=== PATIENT | male | born 1930 | race Two or more races ===

== ENCOUNTER 2018-06-17 14:16 | Inpatient (IN) | payer MEDICARE, MEDICAID ==
[~2018-06-17] VITALS: Ht 172.7 cm; Wt 76.5 kg
[2018-06-17 14:18] VITALS: BP 126/81
[2018-06-17] MEDS ORDERED: Sodium Chloride 500ML 500 ML IV ONE ×2 (14:33→22:15)
[2018-06-17] MEDS ORDERED: Albuterol ud Inhalation HHN ONE (14:45)
[2018-06-17] MEDS ORDERED: Solu-MEDROL 125mg Inj IVP ONE (14:45)
[2018-06-17] MEDS ORDERED: Ipratropium 0.02% Inh Soln 2.5ml UD HHN ONE (14:45)
[2018-06-17] MEDS ORDERED: Levalbuterol Inh UD 1.25mg/0.5ml HHN ONE (14:45)
[2018-06-17] MEDS ORDERED: FERROUS SULFAT325 MG ORAL (15:12)
[2018-06-17] MEDS ORDERED: METOPROLOL TART50 MG ORAL (15:12)
[2018-06-17] MEDS ORDERED: FUROSEMIDE40 MG ORAL (15:12)
[2018-06-17] MEDS ORDERED: POTASSIUM CHLO20 ME1 ORAL (15:12)
[2018-06-17] MEDS ORDERED: LOSARTAN POTASS25 MG ORAL ×2 (15:12→19:10)
[2018-06-17] MEDS ORDERED: MONTELUKAST SOD10 MG ORAL (15:12)
[2018-06-17] MEDS ORDERED: SPIRONOLACTONE100 MG ORAL (15:12)
[2018-06-17] MEDS ORDERED: XARELTO10 MG ORAL (15:12)
[2018-06-17] MEDS ORDERED: ATORVASTATIN CA20 MG ORAL (15:12)
[2018-06-17] MEDS ORDERED: LORazepam Inj 2mg/ml 1ml ONE (15:15)
[2018-06-17] MEDS ORDERED: Metoprolol 5mg/5ml Inj IVP ONE (15:15)
[2018-06-17] MEDS ORDERED: LORazepam Inj 2mg/ml 1ml IV ONE (15:15)
[2018-06-17] MEDS ORDERED: Lidocaine 1% Plain 30 ml INJ ONE (15:30)
[2018-06-17] MEDS ORDERED: Heparin 2000 units/Ns 1000ml INJ ONE (15:30)
[2018-06-17] MEDS ORDERED: LORazepam Inj 2mg/ml 1ml IM ONE ×3 (16:00→17:00)
[2018-06-17] MEDS ORDERED: Haloperidol 5mg/ml Inj IM ONE ×2 (16:15→17:00)
--- NOTE | 2018-06-17 16:23 | Emergency Room Report ---
History of Present Illness General Chief Complaint: Upper Respiratory Illness Source: Medical Record Present Illness HPI 88-year-old male presents ED for evaluation. Complaining of cough and congestion times one day. History of COPD. Afebrile. Coming from intermediate facility. Patient is a poor historian. Very anxious on arrival. At his baseline mentation. No reported cough. No reported chest pain. No other aggravating relieving factors. No other associated symptoms Allergies: Coded Allergies: IBUPROFEN (Verified Allergy, Unknown, 06/17/18) Patient History Past Medical History: HTN, COPD Past Surgical History: none Pertinent Family History: none Social History: Denies: smoking, alcohol use, drug use Immunizations: UTD Reviewed Nursing Documentation: PMH: Agreed; PSxH: Agreed Nursing Documentation-PMH Past Medical History: No History, Except For Hx Cardiac Problems: No - a-fib, anemia Hx Hypertension: Yes Hx COPD: Yes Hx Gastrointestinal Problems: No - kidney failure Hx Neurological Problems: No - dementia Review of Systems All Other Systems: limited Physical Exam Vital Signs Date Time Temp Pulse Resp B/P (MAP) Pulse Ox O2 Delivery O2 Flow Rate FiO2 06/17/18 14:18 99.3 137 20 126/81 98 Nasal Cannula 2.0 06/17/18 15:51 28 Sp02 EP Interpretation: reviewed, normal General Appearance: no apparent distress, alert, GCS 15, non-toxic Head: normocephalic, atraumatic Eyes: bilateral eye normal inspection, bilateral eye PERRL ENT: hearing grossly normal, normal pharynx, no angioedema, normal voice Neck: full range of motion, supple/symm/no masses Respiratory: chest non-tender, decreased breath sounds, speaking full sentences , wheezing Cardiovascular #1: no edema, tachycardia Cardiovascular #2: 2+ carotid (R), 2+ carotid (L), 2+ radial (R), 2+ radial (L) , 2+ dorsalis pedis (R), 2+ dorsalis pedis (L) Gastrointestinal: normal bowel sounds, non tender, soft, non-distended, no guarding, no rebound Rectal: deferred Genitourinary: normal inspection, no CVA tenderness Musculoskeletal: back normal, gait/station normal, normal range of motion, non- tender Neurologic: alert, oriented x3, responsive, motor strength/tone normal, sensory intact, speech normal Psychiatric: judgement/insight normal, memory normal, anxious Reflexes: 3+ bicep (R), 3+ bicep (L), 3+ tricep (R), 3+ tricep (L), 3+ knee (R) , 3+ knee (L) Skin: normal color, no rash, warm/dry, well hydrated Lymphatic: no adenopathy Procedures Critical Care Time Critical Care Time i. I feel this is a highly complex case requiring extensive working including EKG/Rhythm strip, Xray/CT/US, Blood/urine lab work, repeat exams while in ED, and administration of strong opiates/narcotics for pain control, admission to hospital or close patient follow up. Total time: 30 min bedside evaluation and treatment excludes procedures (EKG). Reason for critical care: afib wtih RVR, COPD Possible complications: hypotension, hypertension, FL, shock, arrhythmias, metabolic acidosis, end organ damage, respiratory failure. Interventions: labs, EKG, CXR IVFs, PICC line, lopressor, levaquin, insulin/D50 Course: patient presenting with shortness of breath, cough. History of COPD. Given breathing treatment. Tachycardic. EKG shows A. fib with RVR. Patient has poor IV access. US guided IV ultimately placed after sedation given. Given antibiotics. Given Lopressor. Given 30 mL per KG fluid bolus Consultations: nursing staff, EMS, family Performed by: Dr Wooten Tolerated well condition = serious j. because of unstable vital signs this patient had a condition that could potentially threaten life or limb. I feel this is a critical patient who required my full attention while patient was considered critical. Total Critical Care Time excluding procedures was greater than 35 minutes Medical Decision Making Diagnostic Impression: Primary Impression: COPD exacerbation Additional Impressions: Atrial fibrillation with RVR Sepsis Qualified Codes: A41.9 - Sepsis, unspecified organism Hyperkalemia Renal insufficiency ER Course Hospital Course 88-year-old M presenting to ED with SOB. h/o COPD Differential diagnoses include: Pneumonia, CHF exacerbation, pneumothorax, fluid overload Clinical course Patient placed on stretcher. 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 EKG shows afib with RVR After initial history and physical, I ordered nebulizer treatments. I ordered labs, IV fluids, EKG, chest x-ray, blood cultures, UA. Difficult IV access. Ultrasound-guided peripheral IV established by radiology when PICC line was not feasible (patient required extensive sedation meds) Labs - noted leukocytosis noted, hemoglobin/hematocrit stable, K 5.5, Cr 1.6, lactate 2.4, troponins negative CXR - hyperinflated lungs, no acute process EKG - afib with RVR abx given. Given 30 mL per KG fluid bolus. Given Lopressor. given insulin/D50 Case discussed with Dr. Lopez and he agreed to the patient to his service for further care and support I feel this is a highly complex case requiring extensive working including EKG/ Rhythm strip, Xray/CT/US, Blood/urine lab work, repeat exams while in ED, and administration of strong opiates/narcotics for pain control, admission to hospital or close patient follow up. Diagnosis - COPD exacerbation, afib with RVR, sepsis, hyperkalemia, renal insufficiency Patient admitted to telemetry in serious condition Labs Test 06/17/18 14:50 06/17/18 16:20 06/17/18 17:19 Lactic Acid Level 2.40 mmol/L (0.4-2.0) White Blood Count 24.8 K/UL (4.8-10.8) Red Blood Count 4.00 M/UL (4.70-6.10) Hemoglobin 13.7 G/DL (14.2-18.0) Hematocrit 38.9 % (42.0-52.0) Mean Corpuscular Volume 97 FL (80-99) Mean Corpuscular Hemoglobin 34.2 PG (27.0-31.0) Mean Corpuscular Hemoglobin Concent 35.3 G/DL (32.0-36.0) Red Cell Distribution Width 12.6 % (11.6-14.8) Platelet Count 86 K/UL (150-450) Mean Platelet Volume 8.3 FL (6.5-10.1) Neutrophils (%) (Auto) % (45.0-75.0) Lymphocytes (%) (Auto) % (20.0-45.0) Monocytes (%) (Auto) % (1.0-10.0) Eosinophils (%) (Auto) % (0.0-3.0) Basophils (%) (Auto) % (0.0-2.0) Differential Total Cells Counted 100 Neutrophils % (Manual) 76 % (45-75) Lymphocytes % (Manual) 4 % (20-45) Monocytes % (Manual) 4 % (1-10) Eosinophils % (Manual) 0 % (0-3) Basophils % (Manual) 0 % (0-2) Band Neutrophils 16 % (0-8) Platelet Estimate Decreased Platelet Morphology Normal Red Blood Cell Morphology Normal Sodium Level 134 MMOL/L (136-145) Potassium Level 5.5 MMOL/L (3.5-5.1) Chloride Level 100 MMOL/L (98-107) Carbon Dioxide Level 21 MMOL/L (21-32) Anion Gap 13 mmol/L (5-15) Blood Urea Nitrogen 34 mg/dL (7-18) Creatinine 1.6 MG/DL (0.55-1.30) Estimat Glomerular Filtration Rate mL/min (>60) Glucose Level 82 MG/DL (74-106) Calcium Level 9.8 MG/DL (8.5-10.1) Total Bilirubin 1.5 MG/DL (0.2-1.0) Direct Bilirubin 0.5 MG/DL (0.0-0.3) Aspartate Amino Transf (AST/SGOT) 41 U/L (15-37) Alanine Aminotransferase (ALT/SGPT) 36 U/L (12-78) Alkaline Phosphatase 126 U/L (46-116) Total Creatine Kinase 80 U/L (26-308) Creatine Kinase MB 1.3 NG/ML (0.0-3.6) Creatine Kinase MB Relative Index 1.6 Troponin I 0.033 ng/mL (0.000-0.056) Pro-B-Type Natriuretic Peptide 4659 pg/mL (0-125) Total Protein 8.8 G/DL (6.4-8.2) Albumin 3.0 G/DL (3.4-5.0) Globulin 5.8 g/dL Albumin/Globulin Ratio 0.5 (1.0-2.7) EKG Diagnostic Results Rate: tachycardiac Rhythm: other - afib ST Segments: no acute changes ASA given to the pt in ED: No Rhythm Strip Diag. Results EP Interpretation: yes Rhythm: no PVC's, no ectopy Chest X-Ray Diagnostic Results Chest X-Ray Diagnostic Results : Chest X-Ray Ordered: Yes # of Views/Limited/Complete: 1 View Indication: Shortness of Breath EP Interpretation: Yes Interpretation: no pneumothorax, other - small effusion RLL Impression: Other - effusion/COPD Electronically Signed by: Electronically signed by Virgilio Wooten MD Last Vital Signs Date Time Temp Pulse Resp B/P (MAP) Pulse Ox O2 Delivery O2 Flow Rate FiO2 06/17/18 15:53 128 30 Nasal Cannula 2.0 28 06/17/18 14:18 99.3 126/81 98 Status: improved Disposition: ADMITTED INPATIENT Condition: Serious Referrals: NON PHYSICIAN (PCP) Virgilio Wooten MD Jun 17, 2018 16:23
[2018-06-17 17:01] LABS: HEMATOCRIT 38.9 % (42.0-52.0); HEMOGLOBIN 13.7 G/DL (14.2-18.0); MEAN CORPUSCULAR VOLUME 97 FL (80-99); PLATELET COUNT 86 K/UL (150-450); RED CELL DISTRIBUTION WIDTH 12.6 % (11.6-14.8)
[2018-06-17 17:06] LABS: WHITE BLOOD COUNT 24.8 K/UL (4.8-10.8)
--- NOTE | 2018-06-17 17:33 | Diagnostic Imaging Report ---
Indication: Shortness of breath Technique: One view of the chest Comparison: none Findings: There is bilateral basilar atelectasis. The heart is borderline enlarged. The aorta is tortuous and calcified. Degenerative changes of both shoulders are noted Impression: Bilateral basilar atelectasis. No acute process otherwise
[2018-06-17 17:38] LABS: ANION GAP 13 mmol/L (5-15); BLOOD UREA NITROGEN 34 mg/dL (7-18); CALCIUM 9.8 MG/DL (8.5-10.1); CARBON DIOXIDE 21 MMOL/L (21-32); CHLORIDE 100 MMOL/L (98-107); CREATININE 1.6 MG/DL (0.55-1.30); POTASSIUM 5.5 MMOL/L (3.5-5.1); SODIUM 134 MMOL/L (136-145)
[2018-06-17] MEDS ORDERED: NS 1000ml 2,200 ML IVLG ONE (17:45)
[2018-06-17] MEDS ORDERED: Insulin Human Regular 100units/ml 3ml IV ONE (17:45)
[2018-06-17] MEDS ORDERED: Metoprolol 5mg/5ml Inj ONE (17:47)
[2018-06-17 17:51] LABS: ALANINE AMINOTRANSFERASE 36 U/L (12-78); ALBUMIN/GLOBULIN RATIO 0.5 (1.0-2.7); ALKALINE PHOSPHATASE 126 U/L (46-116); ASPARTATE AMINO TRANSFERASE 41 U/L (15-37); BILIRUBIN,TOTAL 1.5 MG/DL (0.2-1.0); CKMB 1.3 NG/ML (0.0-3.6); CREATINE KINASE 80 U/L (26-308)
[2018-06-17 17:53] LABS: BILIRUBIN,DIRECT 0.5 MG/DL (0.0-0.3)
[2018-06-17 17:59] VITALS: BP 125/87
[2018-06-17] MEDS ORDERED: ZINC SULFATE220 M2 ORAL (18:50)
[2018-06-17 18:52] LABS: INR 1.1 (0.9-1.1)
[2018-06-17] MEDS ORDERED: VITAMIN B-121000 MCG PO (18:54)
[2018-06-17] MEDS ORDERED: PANTOPRAZOLE SO40 MG ORAL (18:55)
[2018-06-17] MEDS ORDERED: ADVAIR 250-501 EACH INH (19:00)
[2018-06-17] MEDS ORDERED: FOLIC ACID1 MG ORAL (19:02)
[2018-06-17] MEDS ORDERED: PROMETHAZI6.25 MG/1 ORAL (19:04)
[2018-06-17] MEDS ORDERED: ACETAMINOPHEN325 M1 ORAL (19:07)
[2018-06-17] MEDS ORDERED: XARELTO15 MG ORAL (19:13)
[2018-06-17] MEDS ORDERED: SPIRONOLACTONE25 MG ORAL (19:15)
[2018-06-17] MEDS ORDERED: VITAMIN B-1100 MG ORAL (19:17)
[2018-06-17 19:25] VITALS: BP 129/77
[2018-06-17] MEDS ORDERED: Vancomycin 1.5 GM/D5W 250ML IVPB ONE (19:30)
[2018-06-17] MEDS: Albuterol/Ipratropium 3ml neb HHN SCH ×2 (19:41→23:34)
[2018-06-17 20:00] VITALS: BP 96/59
[2018-06-17] MEDS ORDERED: Dyna-Hex 2% Top Sol 2oz TOPIC SCH (20:00)
[2018-06-17] MEDS: Metoprolol Tartrate 50mg tab ORAL SCH (22:05)
[2018-06-17] MEDS: Atorvastatin 20mg tab ORAL SCH (22:37)
[2018-06-18] VITALS: BP 114/54
[2018-06-18] MEDS: Piperacillin/Tazobactam 3.375 GM in D5W 55 ML IV SCH ×4 (00:43→23:51)
[2018-06-18] MEDS: Albuterol/Ipratropium 3ml neb HHN SCH ×6 (02:07→23:40)
[2018-06-18 04:00] VITALS: BP 113/58
[2018-06-18 05:10] LABS: APPEARANCE,URINE CLEAR; BILIRUBIN, URINE NEGATIVE (NEGATIVE); GLUCOSE, URINE (UA) NEGATIVE (NEGATIVE); KETONES,URINE NEGATIVE (NEGATIVE); LEUKOCYTE ESTERASE ,URINE NEGATIVE (NEGATIVE); NITRITE,URINE NEGATIVE (NEGATIVE); PH,URINE 5 (4.5-8.0); UROBILINOGEN,URINE NORMAL MG/DL (0.0-1.0)
[2018-06-18 05:43] LABS: COLOR,URINE YELLOW; PROTEIN,URINE NEGATIVE (NEGATIVE)
[2018-06-18 07:17] LABS: HEMATOCRIT 31.9 % (42.0-52.0); MEAN CORPUSCULAR VOLUME 97 FL (80-99); PLATELET COUNT 130 K/UL (150-450); RED CELL DISTRIBUTION WIDTH 12.7 % (11.6-14.8)
[2018-06-18 07:20] LABS: ALANINE AMINOTRANSFERASE 21 U/L (12-78); ALBUMIN 2.2 G/DL (3.4-5.0); ALBUMIN/GLOBULIN RATIO 0.5 (1.0-2.7); ALKALINE PHOSPHATASE 87 U/L (46-116); ANION GAP 11 mmol/L (5-15); ASPARTATE AMINO TRANSFERASE 26 U/L (15-37); BILIRUBIN,TOTAL 1.1 MG/DL (0.2-1.0); BLOOD UREA NITROGEN 34 mg/dL (7-18); CALCIUM 8.2 MG/DL (8.5-10.1); CARBON DIOXIDE 20 MMOL/L (21-32); CHLORIDE 106 MMOL/L (98-107); CREATININE 1.5 MG/DL (0.55-1.30); POTASSIUM 4.4 MMOL/L (3.5-5.1); SODIUM 137 MMOL/L (136-145)
[2018-06-18 07:22] LABS: BILIRUBIN,DIRECT 0.4 MG/DL (0.0-0.3); WHITE BLOOD COUNT 22.6 K/UL (4.8-10.8)
--- NOTE | 2018-06-18 07:58 | History and Physical ---
History of Present Illness General Date patient seen: Jun 18, 2018 Time patient seen: 07:39 Reason for Hospitalization: acute respiratory failure Present Illness HPI 88 yo male with h/o copd, afib rvr, dementia presents from [facility] for concerns of shortness of breath and lethargy. Patient is currently somnolent however can be awoken by sternal rub. Patient at baseline has severe dementia and is not comprehendible. Patient has POLST that was brought with him by SNF, it was reviewed by myself along with nursing staff, patient is to remain FULL CODE. decision maker is Delphine Chaparro. Patient noted to be in respiratory distress requiring supplemental oxygen 2L ncl. He was also noted to be septic. patient from [facility] unable to obtain social history due to patient's current medical condition Allergies: Coded Allergies: IBUPROFEN (Verified Allergy, Unknown, 06/17/18) Medication History Scheduled Atorvastatin Calcium* (Atorvastatin Calcium*), 20 MG ORAL BEDTIME, (Reported) Ferrous Sulfate* (Ferrous Sulfate*), 325 MG ORAL DAILY, (Reported) Furosemide* (Lasix*), 40 MG ORAL DAILY, (Reported) Losartan Potassium* (Losartan Potassium*), 25 MG ORAL DAILY, (Reported) Metoprolol Tartrate* (Metoprolol Tartrate*), 50 MG ORAL EVERY 12 HOURS, ( Reported) Montelukast Sodium* (Montelukast Sodium*), 10 MG ORAL DAILY, (Reported) Potassium Chloride* (K-Dur*), 20 MEQ ORAL DAILY, (Reported) Rivaroxaban (Xarelto), 15 MG ORAL QHS, (Reported) Spironolactone* (Aldactone*), 25 MG ORAL DAILY, (Reported) Thiamine Hcl* (Vitamin B-1*), 100 MG ORAL DAILY, (Reported) Scheduled PRN Acetaminophen* (Acetaminophen 325MG Tablet*), 650 MG ORAL Q4H PRN for Fever/ Headache/Mild Pain, (Reported) Promethazine Hcl (Promethazine Hcl*), 5 ML ORAL Q6H PRN for For Cough, (Reported ) Discontinued Medications Cyanocobalamin (Vitamin B-12) (Vitamin B-12), 1,000 MCG PO DAILY, (Reported) Discontinued Reason: Pt stopped taking med Fluticasone/Salmeterol (Advair 250-50 Diskus), 1 PUFF INH DAILY, (Reported) Discontinued Reason: Pt stopped taking med Folic Acid* (Folic Acid*), 1 MG ORAL DAILY, (Reported) Discontinued Reason: Pt stopped taking med Pantoprazole* (Pantoprazole*), 40 MG ORAL DAILY, (Reported) Discontinued Reason: Pt stopped taking med Zinc Sulfate (Zinc Sulfate), 220 MG ORAL DAILY, (Reported) Discontinued Reason: Pt stopped taking med Patient History Limited by: medical condition History Provided By: Medical Record Healthcare decision maker N/A Resuscitation status Full Code Advanced Directive on File Review of Systems ROS Narrative unable to obtain due to patient's current medical condition Physical Exam General Appearance: no apparent distress, lethargic, cachetic HEENT: normocephalic, atraumatic, mucous membranes moist, PERRL Neck: non-tender, normal alignment, supple, normal inspection Respiratory/Chest: chest wall non-tender, lungs clear, normal breath sounds, no respiratory distress Cardiovascular/Chest: normal peripheral pulses, normal rate, regularly irregular Abdomen: normal bowel sounds, non tender, soft, no mass Extremities: normal range of motion, normal inspection, no calf tenderness, normal capillary refill Skin Exam: normal pigmentation, warm/dry 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, no motor/sensory deficits, disoriented, aphasia Last 24 Hour Vital Signs Date Time Temp Pulse Resp B/P (MAP) Pulse Ox O2 Delivery O2 Flow Rate FiO2 06/18/18 06:56 79 20 98 Nasal Cannula 2.0 28 06/18/18 06:45 Nasal Cannula 2.0 28 06/18/18 06:45 93 Nasal Cannula 2.0 28 06/18/18 06:45 77 20 93 Nasal Cannula 2.0 28 06/18/18 04:00 107 06/18/18 04:00 97.0 118 20 113/58 (76) 97 06/18/18 02:18 85 16 98 Nasal Cannula 2.0 28 06/18/18 02:08 99 16 95 Nasal Cannula 2.0 28 06/18/18 00:00 97.3 113 18 114/54 (74) 97 06/18/18 00:00 102 06/17/18 23:41 91 18 99 Nasal Cannula 2.0 28 06/17/18 23:35 106 18 96 Nasal Cannula 2.0 28 06/17/18 22:05 121 87/53 06/17/18 21:00 108 06/17/18 20:27 Nasal Cannula 2.0 06/17/18 20:00 98.7 113 18 96/59 (71) 98 06/17/18 19:53 115 14 95 Nasal Cannula 2.0 28 06/17/18 19:53 92 Nasal Cannula 2.0 28 06/17/18 19:53 Nasal Cannula 2.0 28 06/17/18 19:51 113 14 Nasal Cannula 2.0 28 06/17/18 19:40 113 14 90 Nasal Cannula 2.0 28 06/17/18 19:25 98.7 133 20 129/77 (94) 95 06/17/18 19:00 99.0 122 29 125/87 99 Nasal Cannula 06/17/18 17:59 99.0 122 29 125/87 99 Nasal Cannula 06/17/18 17:49 160 130/96 06/17/18 15:53 128 30 Nasal Cannula 2.0 28 06/17/18 15:51 28 06/17/18 14:18 99.3 137 20 126/81 98 Nasal Cannula 2.0 06/17/18 14:18 137 20 Nasal Cannula 2.0 06/17/18 14:18 99.3 137 20 126/81 98 Nasal Cannula 2.0 Intake and Output 06/17/18 06/18/18 18:59 06:59 Intake Total 305.00 ml Output Total 500 ml Balance -195.00 ml Intake IV Total 305.00 ml Output Urine Total 500 ml # Voids 2 Laboratory Tests Test 06/17/18 14:50 06/17/18 16:20 06/17/18 17:19 06/17/18 17:49 Lactic Acid Level 2.40 mmol/L (0.4-2.0) H 5.20 mmol/L (0.66-2.22) H White Blood Count 24.8 K/UL (4.8-10.8) *H Red Blood Count 4.00 M/UL (4.70-6.10) L Hemoglobin 13.7 G/DL (14.2-18.0) L Hematocrit 38.9 % (42.0-52.0) L Mean Corpuscular Volume 97 FL (80-99) Mean Corpuscular Hemoglobin 34.2 PG (27.0-31.0) H Mean Corpuscular Hemoglobin Concent 35.3 G/DL (32.0-36.0) Red Cell Distribution Width 12.6 % (11.6-14.8) Platelet Count 86 K/UL (150-450) L Mean Platelet Volume 8.3 FL (6.5-10.1) Neutrophils (%) (Auto) % (45.0-75.0) Lymphocytes (%) (Auto) % (20.0-45.0) Monocytes (%) (Auto) % (1.0-10.0) Eosinophils (%) (Auto) % (0.0-3.0) Basophils (%) (Auto) % (0.0-2.0) Differential Total Cells Counted 100 Neutrophils % (Manual) 76 % (45-75) H Lymphocytes % (Manual) 4 % (20-45) L Monocytes % (Manual) 4 % (1-10) Eosinophils % (Manual) 0 % (0-3) Basophils % (Manual) 0 % (0-2) Band Neutrophils 16 % (0-8) H Platelet Estimate Decreased L Platelet Morphology Normal Red Blood Cell Morphology Normal Sodium Level 134 MMOL/L (136-145) L Potassium Level 5.5 MMOL/L (3.5-5.1) H Chloride Level 100 MMOL/L (98-107) Carbon Dioxide Level 21 MMOL/L (21-32) Anion Gap 13 mmol/L (5-15) Blood Urea Nitrogen 34 mg/dL (7-18) H Creatinine 1.6 MG/DL (0.55-1.30) H Estimat Glomerular Filtration Rate mL/min (>60) Glucose Level 82 MG/DL (74-106) Calcium Level 9.8 MG/DL (8.5-10.1) Total Bilirubin 1.5 MG/DL (0.2-1.0) H Direct Bilirubin 0.5 MG/DL (0.0-0.3) H Aspartate Amino Transf (AST/SGOT) 41 U/L (15-37) H Alanine Aminotransferase (ALT/SGPT) 36 U/L (12-78) Alkaline Phosphatase 126 U/L (46-116) H Total Creatine Kinase 80 U/L (26-308) Creatine Kinase MB 1.3 NG/ML (0.0-3.6) Creatine Kinase MB Relative Index 1.6 Troponin I 0.033 ng/mL (0.000-0.056) Pro-B-Type Natriuretic Peptide 4659 pg/mL (0-125) H 5894 pg/mL (0-125) H Total Protein 8.8 G/DL (6.4-8.2) H Albumin 3.0 G/DL (3.4-5.0) L Globulin 5.8 g/dL Albumin/Globulin Ratio 0.5 (1.0-2.7) L Prothrombin Time 11.3 SEC (9.30-11.50) Prothromb Time International Ratio 1.1 (0.9-1.1) Activated Partial Thromboplast Time 29 SEC (23-33) Test 06/17/18 21:10 06/18/18 03:44 06/18/18 06:10 Arterial Blood pH 7.360 (7.350-7.450) Arterial Blood Partial Pressure CO2 34.2 mmHg (35.0-45.0) L Arterial Blood Partial Pressure O2 92.5 mmHg (75.0-100.0) Arterial Blood HCO3 19.0 mmol/L (22.0-26.0) L Arterial Blood Oxygen Saturation 96.0 % (95-100) Arterial Blood Base Excess -5.6 (-2-2) L Sunil Test Positive Urine Color Yellow Urine Appearance Clear Urine pH 5 (4.5-8.0) Urine Specific [place] 1.015 (1.005-1.035) Urine Protein Negative (NEGATIVE) Urine Glucose (UA) Negative (NEGATIVE) Urine Ketones Negative (NEGATIVE) Urine Blood Negative (NEGATIVE) Urine Nitrite Negative (NEGATIVE) Urine Bilirubin Negative (NEGATIVE) Urine Urobilinogen Normal MG/DL (0.0-1.0) Urine Leukocyte Esterase Negative (NEGATIVE) White Blood Count 22.6 K/UL (4.8-10.8) *H Red Blood Count 3.30 M/UL (4.70-6.10) L Hemoglobin 11.0 G/DL (14.2-18.0) L Hematocrit 31.9 % (42.0-52.0) L Mean Corpuscular Volume 97 FL (80-99) Mean Corpuscular Hemoglobin 33.4 PG (27.0-31.0) H Mean Corpuscular Hemoglobin Concent 34.6 G/DL (32.0-36.0) Red Cell Distribution Width 12.7 % (11.6-14.8) Platelet Count 130 K/UL (150-450) #L Mean Platelet Volume 6.1 FL (6.5-10.1) L Neutrophils (%) (Auto) % (45.0-75.0) Lymphocytes (%) (Auto) % (20.0-45.0) Monocytes (%) (Auto) % (1.0-10.0) Eosinophils (%) (Auto) % (0.0-3.0) Basophils (%) (Auto) % (0.0-2.0) Neutrophils % (Manual) Pending Lymphocytes % (Manual) Pending Platelet Estimate Pending Platelet Morphology Pending Sodium Level 137 MMOL/L (136-145) Potassium Level 4.4 MMOL/L (3.5-5.1) Chloride Level 106 MMOL/L (98-107) Carbon Dioxide Level 20 MMOL/L (21-32) L Anion Gap 11 mmol/L (5-15) Blood Urea Nitrogen 34 mg/dL (7-18) H Creatinine 1.5 MG/DL (0.55-1.30) H Estimat Glomerular Filtration Rate mL/min (>60) Glucose Level 186 MG/DL (74-106) #H Lactic Acid Level 2.50 mmol/L (0.4-2.0) H Calcium Level 8.2 MG/DL (8.5-10.1) L Total Bilirubin 1.1 MG/DL (0.2-1.0) H Direct Bilirubin 0.4 MG/DL (0.0-0.3) H Aspartate Amino Transf (AST/SGOT) 26 U/L (15-37) Alanine Aminotransferase (ALT/SGPT) 21 U/L (12-78) Alkaline Phosphatase 87 U/L (46-116) Total Protein 7.0 G/DL (6.4-8.2) Albumin 2.2 G/DL (3.4-5.0) L Globulin 4.8 g/dL Albumin/Globulin Ratio 0.5 (1.0-2.7) L Height (Feet): 5 Height (Inches): 8.00 Weight (Pounds): 178 Medications Current Medications Medications (Trade) Dose Ordered Sig/Leanna Route PRN Reason Start Time Stop Time Status Last Admin Dose Admin Albuterol/ Ipratropium (Albuterol/ Ipratropium) 3 ml Q4HRT HHN 06/17/18 19:00 06/22/18 18:59 06/18/18 06:44 Atorvastatin Calcium (Lipitor) 20 mg BEDTIME ORAL 06/17/18 21:00 07/17/18 20:59 Chlorhexidine Gluconate (Zoila-Hex 2%) 1 applic DAILY@2000 TOPIC 06/17/18 20:00 07/17/18 19:59 Furosemide (Lasix) 40 mg EVERY 12 HOURS IV 06/17/18 21:00 07/17/18 20:59 Losartan Potassium (Cozaar) 25 mg DAILY ORAL 06/18/18 09:00 07/18/18 08:59 Metoprolol Tartrate (Lopressor) 50 mg EVERY 12 HOURS ORAL 06/17/18 21:00 07/17/18 20:59 Montelukast Sodium (Singulair) 10 mg DAILY ORAL 06/18/18 09:00 07/18/18 08:59 Piperacillin Sod/ Tazobactam Sod 3.375 gm/Dextrose 55 ml @ 13.75 mls/ hr Q8HR IV 06/17/18 21:00 06/24/18 20:59 06/18/18 06:16 Rivaroxaban (Xarelto) 15 mg DAILY ORAL 06/18/18 09:00 07/18/18 08:59 Vancomycin HCl (Vanco rx to dose) 1 ea DAILY PRN MISC Vanco per Rx 06/17/18 20:15 07/17/18 18:29 Assessment/Plan Problem List: (1) Acute metabolic encephalopathy Assessment & Plan: due to sepsis cont fluids and abx gentle fluids as patient is on home lasix, may have been over diuresed.. bp was on lower end overnight and improved with bolus of fluids cards and id consulted, appreciate recs tele monitor closely ICD Codes: G93.41 - Metabolic encephalopathy SNOMED: 65206660, 377399697 (2) Sepsis Assessment & Plan: unknown source, likely pneumonia cxr reviewed, read does not mention pna however concerns for possible RLL pna per my read. wbc 24 to 22 today LA improving to 2 ICD Codes: A41.9 - Sepsis, unspecified organism SNOMED: 25553035, 515525801 Qualifiers: Qualified Codes: A41.9 - Sepsis, unspecified organism (3) COPD exacerbation Assessment & Plan: breathing tx hold off steroids due to sepsis, patient doesnt seem to be in much distress at this time, stable with breathing tx and supplemental o2 monitor tele ICD Codes: J44.1 - Chronic obstructive pulmonary disease with (acute) exacerbation SNOMED: 950353959 (4) Atrial fibrillation with RVR Assessment & Plan: resumed home anticoagulation cards consulted rate controlled now tele monitor ICD Codes: I48.91 - Unspecified atrial fibrillation SNOMED: 518538548322309 (5) NSTEMI (non-ST elevated myocardial infarction) Assessment & Plan: trop .033 TYPE II NSTEMI due to demand ischemia from sepsis/copd exacerbation trend trops pending lab results cards consulted ICD Codes: I21.4 - Non-ST elevation (NSTEMI) myocardial infarction SNOMED: 842164275 (6) Demand ischemia Assessment & Plan: due to sepsis and copd exacerbation management per above monitor cards following ICD Codes: I24.8 - Other forms of acute ischemic heart disease SNOMED: 171629581 (7) Hyperkalemia Assessment & Plan: improving, 4.4 now monitor ICD Codes: E87.5 - Hyperkalemia SNOMED: 59406848, 774254466 (8) TUTU (acute kidney injury) Assessment & Plan: seems like may have been over diuresed with home lasix dc lasix cards consulted mild hydration monitor closely ICD Codes: N17.9 - Acute kidney failure, unspecified SNOMED: 12659406 Status: unchanged Assessment/Plan I have spent over 75 minutes regarding patient care and counseling and 46 minutes of face to face time with the patient i have also spent over 63 minutes in reviewing medical records for the appropriate management of this patient. Paul Rapp MD Jun 18, 2018 07:58
[2018-06-18 08:00] VITALS: BP 107/61
[2018-06-18] MEDS ORDERED: LORazepam Inj 2mg/ml 1ml IV SCH (09:45)
--- NOTE | 2018-06-18 09:49 | Consultation ---
History of Present Illness General Date patient seen: Jun 18, 2018 Time patient seen: 09:39 Chief Complaint: Upper Respiratory Illness Present Illness HPI 88 year old male sent from convalescent home to rule out PNA, he is tachycardiac AFIb, agitated, hypotensive, hx of AFIB, CHF, COPD, dementia. WBC elevated, lactate elevated. CXR with atelectasis. Allergies: Coded Allergies: IBUPROFEN (Verified Allergy, Unknown, 06/17/18) Medication History Scheduled Atorvastatin Calcium* (Atorvastatin Calcium*), 20 MG ORAL BEDTIME, (Reported) Ferrous Sulfate* (Ferrous Sulfate*), 325 MG ORAL DAILY, (Reported) Furosemide* (Lasix*), 40 MG ORAL DAILY, (Reported) Losartan Potassium* (Losartan Potassium*), 25 MG ORAL DAILY, (Reported) Metoprolol Tartrate* (Metoprolol Tartrate*), 50 MG ORAL EVERY 12 HOURS, ( Reported) Montelukast Sodium* (Montelukast Sodium*), 10 MG ORAL DAILY, (Reported) Potassium Chloride* (K-Dur*), 20 MEQ ORAL DAILY, (Reported) Rivaroxaban (Xarelto), 15 MG ORAL QHS, (Reported) Spironolactone* (Aldactone*), 25 MG ORAL DAILY, (Reported) Thiamine Hcl* (Vitamin B-1*), 100 MG ORAL DAILY, (Reported) Scheduled PRN Acetaminophen* (Acetaminophen 325MG Tablet*), 650 MG ORAL Q4H PRN for Fever/ Headache/Mild Pain, (Reported) Promethazine Hcl (Promethazine Hcl*), 5 ML ORAL Q6H PRN for For Cough, (Reported ) Discontinued Medications Cyanocobalamin (Vitamin B-12) (Vitamin B-12), 1,000 MCG PO DAILY, (Reported) Discontinued Reason: Pt stopped taking med Fluticasone/Salmeterol (Advair 250-50 Diskus), 1 PUFF INH DAILY, (Reported) Discontinued Reason: Pt stopped taking med Folic Acid* (Folic Acid*), 1 MG ORAL DAILY, (Reported) Discontinued Reason: Pt stopped taking med Pantoprazole* (Pantoprazole*), 40 MG ORAL DAILY, (Reported) Discontinued Reason: Pt stopped taking med Zinc Sulfate (Zinc Sulfate), 220 MG ORAL DAILY, (Reported) Discontinued Reason: Pt stopped taking med Patient History Healthcare decision maker N/A Resuscitation status Full Code Advanced Directive on File Review of Systems Constitutional: Reports: fever Eye: Reports: no symptoms ENT: Reports: no symptoms Respiratory: Reports: shortness of breath Cardiovascular: Reports: no symptoms Gastrointestinal: Reports: no symptoms Genitourinary: Reports: no symptoms Musculoskeletal: Reports: no symptoms Skin: Reports: no symptoms Psychiatric: Reports: no symptoms Neurological: Reports: no symptoms Endocrine: Reports: no symptoms Hematologic/Lymphatic: Reports: no symptoms Physical Exam General Appearance: no apparent distress, alert Lines, tubes and drains: peripheral HEENT: normocephalic, atraumatic Neck: non-tender, normal alignment, supple, normal inspection Respiratory/Chest: chest wall non-tender, lungs clear, normal breath sounds Cardiovascular/Chest: normal peripheral pulses, regularly irregular, tachycardia Abdomen: normal bowel sounds, non tender, soft, no organomegaly Extremities: normal range of motion, non-tender, normal inspection, no calf tenderness Skin Exam: normal pigmentation, warm/dry 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: glass 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 II-XII grossly normal, no motor/sensory deficits, abnormal gait Last 24 Hour Vital Signs Date Time Temp Pulse Resp B/P (MAP) Pulse Ox O2 Delivery O2 Flow Rate FiO2 06/18/18 08:00 98.0 127 20 107/61 (76) 95 06/18/18 06:56 79 20 98 Nasal Cannula 2.0 28 06/18/18 06:45 Nasal Cannula 2.0 28 06/18/18 06:45 93 Nasal Cannula 2.0 28 06/18/18 06:45 77 20 93 Nasal Cannula 2.0 28 06/18/18 04:00 107 06/18/18 04:00 97.0 118 20 113/58 (76) 97 06/18/18 02:18 85 16 98 Nasal Cannula 2.0 28 06/18/18 02:08 99 16 95 Nasal Cannula 2.0 28 06/18/18 00:00 97.3 113 18 114/54 (74) 97 06/18/18 00:00 102 06/17/18 23:41 91 18 99 Nasal Cannula 2.0 28 06/17/18 23:35 106 18 96 Nasal Cannula 2.0 28 06/17/18 22:05 121 87/53 06/17/18 21:00 108 06/17/18 20:27 Nasal Cannula 2.0 06/17/18 20:00 98.7 113 18 96/59 (71) 98 06/17/18 19:53 115 14 95 Nasal Cannula 2.0 28 06/17/18 19:53 92 Nasal Cannula 2.0 28 06/17/18 19:53 Nasal Cannula 2.0 28 06/17/18 19:51 113 14 Nasal Cannula 2.0 28 06/17/18 19:40 113 14 90 Nasal Cannula 2.0 28 06/17/18 19:25 98.7 133 20 129/77 (94) 95 06/17/18 19:00 99.0 122 29 125/87 99 Nasal Cannula 06/17/18 17:59 99.0 122 29 125/87 99 Nasal Cannula 06/17/18 17:49 160 130/96 06/17/18 15:53 128 30 Nasal Cannula 2.0 28 06/17/18 15:51 28 06/17/18 14:18 99.3 137 20 126/81 98 Nasal Cannula 2.0 06/17/18 14:18 137 20 Nasal Cannula 2.0 06/17/18 14:18 99.3 137 20 126/81 98 Nasal Cannula 2.0 Intake and Output 06/17/18 06/18/18 18:59 06:59 Intake Total 305.00 ml Output Total 500 ml Balance -195.00 ml Intake IV Total 305.00 ml Output Urine Total 500 ml # Voids 2 Laboratory Tests Test 06/17/18 14:50 06/17/18 16:20 06/17/18 17:19 06/17/18 17:49 Lactic Acid Level 2.40 mmol/L (0.4-2.0) H 5.20 mmol/L (0.66-2.22) H White Blood Count 24.8 K/UL (4.8-10.8) *H Red Blood Count 4.00 M/UL (4.70-6.10) L Hemoglobin 13.7 G/DL (14.2-18.0) L Hematocrit 38.9 % (42.0-52.0) L Mean Corpuscular Volume 97 FL (80-99) Mean Corpuscular Hemoglobin 34.2 PG (27.0-31.0) H Mean Corpuscular Hemoglobin Concent 35.3 G/DL (32.0-36.0) Red Cell Distribution Width 12.6 % (11.6-14.8) Platelet Count 86 K/UL (150-450) L Mean Platelet Volume 8.3 FL (6.5-10.1) Neutrophils (%) (Auto) % (45.0-75.0) Lymphocytes (%) (Auto) % (20.0-45.0) Monocytes (%) (Auto) % (1.0-10.0) Eosinophils (%) (Auto) % (0.0-3.0) Basophils (%) (Auto) % (0.0-2.0) Differential Total Cells Counted 100 Neutrophils % (Manual) 76 % (45-75) H Lymphocytes % (Manual) 4 % (20-45) L Monocytes % (Manual) 4 % (1-10) Eosinophils % (Manual) 0 % (0-3) Basophils % (Manual) 0 % (0-2) Band Neutrophils 16 % (0-8) H Platelet Estimate Decreased L Platelet Morphology Normal Red Blood Cell Morphology Normal Sodium Level 134 MMOL/L (136-145) L Potassium Level 5.5 MMOL/L (3.5-5.1) H Chloride Level 100 MMOL/L (98-107) Carbon Dioxide Level 21 MMOL/L (21-32) Anion Gap 13 mmol/L (5-15) Blood Urea Nitrogen 34 mg/dL (7-18) H Creatinine 1.6 MG/DL (0.55-1.30) H Estimat Glomerular Filtration Rate mL/min (>60) Glucose Level 82 MG/DL (74-106) Calcium Level 9.8 MG/DL (8.5-10.1) Total Bilirubin 1.5 MG/DL (0.2-1.0) H Direct Bilirubin 0.5 MG/DL (0.0-0.3) H Aspartate Amino Transf (AST/SGOT) 41 U/L (15-37) H Alanine Aminotransferase (ALT/SGPT) 36 U/L (12-78) Alkaline Phosphatase 126 U/L (46-116) H Total Creatine Kinase 80 U/L (26-308) Creatine Kinase MB 1.3 NG/ML (0.0-3.6) Creatine Kinase MB Relative Index 1.6 Troponin I 0.033 ng/mL (0.000-0.056) Pro-B-Type Natriuretic Peptide 4659 pg/mL (0-125) H 5894 pg/mL (0-125) H Total Protein 8.8 G/DL (6.4-8.2) H Albumin 3.0 G/DL (3.4-5.0) L Globulin 5.8 g/dL Albumin/Globulin Ratio 0.5 (1.0-2.7) L Prothrombin Time 11.3 SEC (9.30-11.50) Prothromb Time International Ratio 1.1 (0.9-1.1) Activated Partial Thromboplast Time 29 SEC (23-33) Test 06/17/18 21:10 06/18/18 03:44 06/18/18 06:10 06/18/18 08:30 Arterial Blood pH 7.360 (7.350-7.450) Arterial Blood Partial Pressure CO2 34.2 mmHg (35.0-45.0) L Arterial Blood Partial Pressure O2 92.5 mmHg (75.0-100.0) Arterial Blood HCO3 19.0 mmol/L (22.0-26.0) L Arterial Blood Oxygen Saturation 96.0 % (95-100) Arterial Blood Base Excess -5.6 (-2-2) L Sunil Test Positive Urine Color Yellow Urine Appearance Clear Urine pH 5 (4.5-8.0) Urine Specific [place] 1.015 (1.005-1.035) Urine Protein Negative (NEGATIVE) Urine Glucose (UA) Negative (NEGATIVE) Urine Ketones Negative (NEGATIVE) Urine Blood Negative (NEGATIVE) Urine Nitrite Negative (NEGATIVE) Urine Bilirubin Negative (NEGATIVE) Urine Urobilinogen Normal MG/DL (0.0-1.0) Urine Leukocyte Esterase Negative (NEGATIVE) White Blood Count 22.6 K/UL (4.8-10.8) *H Red Blood Count 3.30 M/UL (4.70-6.10) L Hemoglobin 11.0 G/DL (14.2-18.0) L Hematocrit 31.9 % (42.0-52.0) L Mean Corpuscular Volume 97 FL (80-99) Mean Corpuscular Hemoglobin 33.4 PG (27.0-31.0) H Mean Corpuscular Hemoglobin Concent 34.6 G/DL (32.0-36.0) Red Cell Distribution Width 12.7 % (11.6-14.8) Platelet Count 130 K/UL (150-450) #L Mean Platelet Volume 6.1 FL (6.5-10.1) L Neutrophils (%) (Auto) % (45.0-75.0) Lymphocytes (%) (Auto) % (20.0-45.0) Monocytes (%) (Auto) % (1.0-10.0) Eosinophils (%) (Auto) % (0.0-3.0) Basophils (%) (Auto) % (0.0-2.0) Differential Total Cells Counted 100 Neutrophils % (Manual) 98 % (45-75) H Lymphocytes % (Manual) 1 % (20-45) L Monocytes % (Manual) 1 % (1-10) Eosinophils % (Manual) 0 % (0-3) Basophils % (Manual) 0 % (0-2) Band Neutrophils 0 % (0-8) Platelet Estimate Decreased L Platelet Morphology Normal Hypochromasia 1+ Anisocytosis 1+ Sodium Level 137 MMOL/L (136-145) Potassium Level 4.4 MMOL/L (3.5-5.1) Chloride Level 106 MMOL/L (98-107) Carbon Dioxide Level 20 MMOL/L (21-32) L Anion Gap 11 mmol/L (5-15) Blood Urea Nitrogen 34 mg/dL (7-18) H Creatinine 1.5 MG/DL (0.55-1.30) H Estimat Glomerular Filtration Rate mL/min (>60) Glucose Level 186 MG/DL (74-106) #H Lactic Acid Level 2.50 mmol/L (0.4-2.0) H Pending Calcium Level 8.2 MG/DL (8.5-10.1) L Total Bilirubin 1.1 MG/DL (0.2-1.0) H Direct Bilirubin 0.4 MG/DL (0.0-0.3) H Aspartate Amino Transf (AST/SGOT) 26 U/L (15-37) Alanine Aminotransferase (ALT/SGPT) 21 U/L (12-78) Alkaline Phosphatase 87 U/L (46-116) Total Protein 7.0 G/DL (6.4-8.2) Albumin 2.2 G/DL (3.4-5.0) L Globulin 4.8 g/dL Albumin/Globulin Ratio 0.5 (1.0-2.7) L Troponin I Pending Height (Feet): 5 Height (Inches): 8.00 Weight (Pounds): 178 Medications Current Medications Medications (Trade) Dose Ordered Sig/Leanna Route PRN Reason Start Time Stop Time Status Last Admin Dose Admin Albuterol/ Ipratropium (Albuterol/ Ipratropium) 3 ml Q4HRT HHN 06/17/18 19:00 06/22/18 18:59 06/18/18 06:44 Atorvastatin Calcium (Lipitor) 20 mg BEDTIME ORAL 06/17/18 21:00 07/17/18 20:59 Chlorhexidine Gluconate (Zoila-Hex 2%) 1 applic DAILY@2000 TOPIC 06/17/18 20:00 07/17/18 19:59 Lorazepam (Ativan 2mg/ml 1ml) 1 mg ONCE IV 06/18/18 09:45 06/18/18 10:45 Losartan Potassium (Cozaar) 25 mg DAILY ORAL 06/18/18 09:00 07/18/18 08:59 Metoprolol Tartrate (Lopressor) 50 mg EVERY 12 HOURS ORAL 06/17/18 21:00 07/17/18 20:59 Montelukast Sodium (Singulair) 10 mg DAILY ORAL 06/18/18 09:00 07/18/18 08:59 Piperacillin Sod/ Tazobactam Sod 3.375 gm/Dextrose 55 ml @ 13.75 mls/ hr Q8HR IV 06/17/18 21:00 06/24/18 20:59 06/18/18 06:16 Rivaroxaban (Xarelto) 15 mg DAILY ORAL 06/18/18 09:00 07/18/18 08:59 Vancomycin HCl (Vanco rx to dose) 1 ea DAILY PRN MISC Vanco per Rx 06/17/18 20:15 07/17/18 18:29 Assessment/Plan Status: stable Assessment/Plan Assessment/Plan Dementia Sepsis/elevated lactate/elevated WBC COPD AFIB TUTU Elevated Troponin -Empiric Abx -Cultures -IV fluids, trend lactate -Pulmonary toilet -Stress dose steroids if not better -Continue rate control, no indication for cardioversion -Defer cardiac cath -Trend troponin -Continue anticoagulation -Echocardiogram to evaluate LV function given elevated BNP William Cruz MD Jun 18, 2018 09:49
[2018-06-18] MEDS: Metoprolol Tartrate 50mg tab ORAL SCH ×2 (10:34→20:58)
[2018-06-18] MEDS: Losartan 25mg tab ORAL SCH (10:35)
[2018-06-18] MEDS: Xarelto 15mg tab ORAL SCH (10:35)
[2018-06-18] MEDS: Montelukast 10mg tablet ORAL SCH (10:35)
[2018-06-18] MEDS ORDERED: ZyPREXA Zydis 10mg tab ORAL SCH (10:45)
--- NOTE | 2018-06-18 10:54 | Consultation ---
History of Present Illness General Chief Complaint: Upper Respiratory Illness Present Illness HPI 88 yo male with h/o psychotic d/o, copd, afib rvr, dementia presents with cc of shortness of breath and lethargy. The pt is delusional and yelling. he is agitated and attempting to come out of bed. the pt is responding to internal stimuli. The pt has memory impairment and is unable to provide any history Allergies: Coded Allergies: IBUPROFEN (Verified Allergy, Unknown, 06/17/18) Medication History Scheduled Atorvastatin Calcium* (Atorvastatin Calcium*), 20 MG ORAL BEDTIME, (Reported) Ferrous Sulfate* (Ferrous Sulfate*), 325 MG ORAL DAILY, (Reported) Furosemide* (Lasix*), 40 MG ORAL DAILY, (Reported) Losartan Potassium* (Losartan Potassium*), 25 MG ORAL DAILY, (Reported) Metoprolol Tartrate* (Metoprolol Tartrate*), 50 MG ORAL EVERY 12 HOURS, ( Reported) Montelukast Sodium* (Montelukast Sodium*), 10 MG ORAL DAILY, (Reported) Potassium Chloride* (K-Dur*), 20 MEQ ORAL DAILY, (Reported) Rivaroxaban (Xarelto), 15 MG ORAL QHS, (Reported) Spironolactone* (Aldactone*), 25 MG ORAL DAILY, (Reported) Thiamine Hcl* (Vitamin B-1*), 100 MG ORAL DAILY, (Reported) Scheduled PRN Acetaminophen* (Acetaminophen 325MG Tablet*), 650 MG ORAL Q4H PRN for Fever/ Headache/Mild Pain, (Reported) Promethazine Hcl (Promethazine Hcl*), 5 ML ORAL Q6H PRN for For Cough, (Reported ) Discontinued Medications Cyanocobalamin (Vitamin B-12) (Vitamin B-12), 1,000 MCG PO DAILY, (Reported) Discontinued Reason: Pt stopped taking med Fluticasone/Salmeterol (Advair 250-50 Diskus), 1 PUFF INH DAILY, (Reported) Discontinued Reason: Pt stopped taking med Folic Acid* (Folic Acid*), 1 MG ORAL DAILY, (Reported) Discontinued Reason: Pt stopped taking med Pantoprazole* (Pantoprazole*), 40 MG ORAL DAILY, (Reported) Discontinued Reason: Pt stopped taking med Zinc Sulfate (Zinc Sulfate), 220 MG ORAL DAILY, (Reported) Discontinued Reason: Pt stopped taking med Patient History Limited by: medical condition History Provided By: Medical Record, PMD Healthcare decision maker N/A Resuscitation status Full Code Advanced Directive on File Past Medical/Surgical History Past Medical/Surgical History: (1) agitation (2) TUTU (acute kidney injury) (3) Hyperkalemia (4) Sepsis (5) Demand ischemia (6) COPD exacerbation (7) NSTEMI (non-ST elevated myocardial infarction) (8) Atrial fibrillation with RVR (9) Renal insufficiency (10) Acute metabolic encephalopathy Review of Systems Psychiatric: Reports: prior hx, anxiety, emotional problems, hallucinations Physical Exam General Appearance: lethargic, confused, severe distress, agitated Last 24 Hour Vital Signs Date Time Temp Pulse Resp B/P (MAP) Pulse Ox O2 Delivery O2 Flow Rate FiO2 06/18/18 10:35 107/61 06/18/18 10:34 127 107/61 06/18/18 08:00 98.0 127 20 107/61 (76) 95 06/18/18 06:56 79 20 98 Nasal Cannula 2.0 28 06/18/18 06:45 Nasal Cannula 2.0 28 06/18/18 06:45 93 Nasal Cannula 2.0 28 06/18/18 06:45 77 20 93 Nasal Cannula 2.0 28 06/18/18 04:00 107 06/18/18 04:00 97.0 118 20 113/58 (76) 97 06/18/18 02:18 85 16 98 Nasal Cannula 2.0 28 06/18/18 02:08 99 16 95 Nasal Cannula 2.0 28 06/18/18 00:00 97.3 113 18 114/54 (74) 97 06/18/18 00:00 102 06/17/18 23:41 91 18 99 Nasal Cannula 2.0 28 06/17/18 23:35 106 18 96 Nasal Cannula 2.0 28 06/17/18 22:05 121 87/53 06/17/18 21:00 108 06/17/18 20:27 Nasal Cannula 2.0 06/17/18 20:00 98.7 113 18 96/59 (71) 98 06/17/18 19:53 115 14 95 Nasal Cannula 2.0 28 06/17/18 19:53 92 Nasal Cannula 2.0 28 06/17/18 19:53 Nasal Cannula 2.0 28 06/17/18 19:51 113 14 Nasal Cannula 2.0 28 06/17/18 19:40 113 14 90 Nasal Cannula 2.0 28 06/17/18 19:25 98.7 133 20 129/77 (94) 95 06/17/18 19:00 99.0 122 29 125/87 99 Nasal Cannula 06/17/18 17:59 99.0 122 29 125/87 99 Nasal Cannula 06/17/18 17:49 160 130/96 06/17/18 15:53 128 30 Nasal Cannula 2.0 28 06/17/18 15:51 28 06/17/18 14:18 99.3 137 20 126/81 98 Nasal Cannula 2.0 06/17/18 14:18 137 20 Nasal Cannula 2.0 06/17/18 14:18 99.3 137 20 126/81 98 Nasal Cannula 2.0 Intake and Output 06/17/18 06/18/18 18:59 06:59 Intake Total 305.00 ml Output Total 500 ml Balance -195.00 ml Intake IV Total 305.00 ml Output Urine Total 500 ml # Voids 2 Laboratory Tests Test 06/17/18 14:50 06/17/18 16:20 06/17/18 17:19 06/17/18 17:49 Lactic Acid Level 2.40 mmol/L (0.4-2.0) H 5.20 mmol/L (0.66-2.22) H White Blood Count 24.8 K/UL (4.8-10.8) *H Red Blood Count 4.00 M/UL (4.70-6.10) L Hemoglobin 13.7 G/DL (14.2-18.0) L Hematocrit 38.9 % (42.0-52.0) L Mean Corpuscular Volume 97 FL (80-99) Mean Corpuscular Hemoglobin 34.2 PG (27.0-31.0) H Mean Corpuscular Hemoglobin Concent 35.3 G/DL (32.0-36.0) Red Cell Distribution Width 12.6 % (11.6-14.8) Platelet Count 86 K/UL (150-450) L Mean Platelet Volume 8.3 FL (6.5-10.1) Neutrophils (%) (Auto) % (45.0-75.0) Lymphocytes (%) (Auto) % (20.0-45.0) Monocytes (%) (Auto) % (1.0-10.0) Eosinophils (%) (Auto) % (0.0-3.0) Basophils (%) (Auto) % (0.0-2.0) Differential Total Cells Counted 100 Neutrophils % (Manual) 76 % (45-75) H Lymphocytes % (Manual) 4 % (20-45) L Monocytes % (Manual) 4 % (1-10) Eosinophils % (Manual) 0 % (0-3) Basophils % (Manual) 0 % (0-2) Band Neutrophils 16 % (0-8) H Platelet Estimate Decreased L Platelet Morphology Normal Red Blood Cell Morphology Normal Sodium Level 134 MMOL/L (136-145) L Potassium Level 5.5 MMOL/L (3.5-5.1) H Chloride Level 100 MMOL/L (98-107) Carbon Dioxide Level 21 MMOL/L (21-32) Anion Gap 13 mmol/L (5-15) Blood Urea Nitrogen 34 mg/dL (7-18) H Creatinine 1.6 MG/DL (0.55-1.30) H Estimat Glomerular Filtration Rate mL/min (>60) Glucose Level 82 MG/DL (74-106) Calcium Level 9.8 MG/DL (8.5-10.1) Total Bilirubin 1.5 MG/DL (0.2-1.0) H Direct Bilirubin 0.5 MG/DL (0.0-0.3) H Aspartate Amino Transf (AST/SGOT) 41 U/L (15-37) H Alanine Aminotransferase (ALT/SGPT) 36 U/L (12-78) Alkaline Phosphatase 126 U/L (46-116) H Total Creatine Kinase 80 U/L (26-308) Creatine Kinase MB 1.3 NG/ML (0.0-3.6) Creatine Kinase MB Relative Index 1.6 Troponin I 0.033 ng/mL (0.000-0.056) Pro-B-Type Natriuretic Peptide 4659 pg/mL (0-125) H 5894 pg/mL (0-125) H Total Protein 8.8 G/DL (6.4-8.2) H Albumin 3.0 G/DL (3.4-5.0) L Globulin 5.8 g/dL Albumin/Globulin Ratio 0.5 (1.0-2.7) L Prothrombin Time 11.3 SEC (9.30-11.50) Prothromb Time International Ratio 1.1 (0.9-1.1) Activated Partial Thromboplast Time 29 SEC (23-33) Test 06/17/18 21:10 06/18/18 03:44 06/18/18 06:10 06/18/18 08:30 Arterial Blood pH 7.360 (7.350-7.450) Arterial Blood Partial Pressure CO2 34.2 mmHg (35.0-45.0) L Arterial Blood Partial Pressure O2 92.5 mmHg (75.0-100.0) Arterial Blood HCO3 19.0 mmol/L (22.0-26.0) L Arterial Blood Oxygen Saturation 96.0 % (95-100) Arterial Blood Base Excess -5.6 (-2-2) L Sunil Test Positive Urine Color Yellow Urine Appearance Clear Urine pH 5 (4.5-8.0) Urine Specific [place] 1.015 (1.005-1.035) Urine Protein Negative (NEGATIVE) Urine Glucose (UA) Negative (NEGATIVE) Urine Ketones Negative (NEGATIVE) Urine Blood Negative (NEGATIVE) Urine Nitrite Negative (NEGATIVE) Urine Bilirubin Negative (NEGATIVE) Urine Urobilinogen Normal MG/DL (0.0-1.0) Urine Leukocyte Esterase Negative (NEGATIVE) White Blood Count 22.6 K/UL (4.8-10.8) *H Red Blood Count 3.30 M/UL (4.70-6.10) L Hemoglobin 11.0 G/DL (14.2-18.0) L Hematocrit 31.9 % (42.0-52.0) L Mean Corpuscular Volume 97 FL (80-99) Mean Corpuscular Hemoglobin 33.4 PG (27.0-31.0) H Mean Corpuscular Hemoglobin Concent 34.6 G/DL (32.0-36.0) Red Cell Distribution Width 12.7 % (11.6-14.8) Platelet Count 130 K/UL (150-450) #L Mean Platelet Volume 6.1 FL (6.5-10.1) L Neutrophils (%) (Auto) % (45.0-75.0) Lymphocytes (%) (Auto) % (20.0-45.0) Monocytes (%) (Auto) % (1.0-10.0) Eosinophils (%) (Auto) % (0.0-3.0) Basophils (%) (Auto) % (0.0-2.0) Differential Total Cells Counted 100 Neutrophils % (Manual) 98 % (45-75) H Lymphocytes % (Manual) 1 % (20-45) L Monocytes % (Manual) 1 % (1-10) Eosinophils % (Manual) 0 % (0-3) Basophils % (Manual) 0 % (0-2) Band Neutrophils 0 % (0-8) Platelet Estimate Decreased L Platelet Morphology Normal Hypochromasia 1+ Anisocytosis 1+ Sodium Level 137 MMOL/L (136-145) Potassium Level 4.4 MMOL/L (3.5-5.1) Chloride Level 106 MMOL/L (98-107) Carbon Dioxide Level 20 MMOL/L (21-32) L Anion Gap 11 mmol/L (5-15) Blood Urea Nitrogen 34 mg/dL (7-18) H Creatinine 1.5 MG/DL (0.55-1.30) H Estimat Glomerular Filtration Rate mL/min (>60) Glucose Level 186 MG/DL (74-106) #H Lactic Acid Level 2.50 mmol/L (0.4-2.0) H 3.90 mmol/L (0.66-2.22) H Calcium Level 8.2 MG/DL (8.5-10.1) L Total Bilirubin 1.1 MG/DL (0.2-1.0) H Direct Bilirubin 0.4 MG/DL (0.0-0.3) H Aspartate Amino Transf (AST/SGOT) 26 U/L (15-37) Alanine Aminotransferase (ALT/SGPT) 21 U/L (12-78) Alkaline Phosphatase 87 U/L (46-116) Total Protein 7.0 G/DL (6.4-8.2) Albumin 2.2 G/DL (3.4-5.0) L Globulin 4.8 g/dL Albumin/Globulin Ratio 0.5 (1.0-2.7) L Troponin I 0.060 ng/mL (0.000-0.056) Height (Feet): 5 Height (Inches): 8.00 Weight (Pounds): 178 Medications Current Medications Medications (Trade) Dose Ordered Sig/Leanna Route PRN Reason Start Time Stop Time Status Last Admin Dose Admin Albuterol/ Ipratropium (Albuterol/ Ipratropium) 3 ml Q4HRT HHN 06/17/18 19:00 06/22/18 18:59 06/18/18 06:44 Atorvastatin Calcium (Lipitor) 20 mg BEDTIME ORAL 06/17/18 21:00 07/17/18 20:59 Chlorhexidine Gluconate (Zoila-Hex 2%) 1 applic DAILY@2000 TOPIC 06/17/18 20:00 07/17/18 19:59 Losartan Potassium (Cozaar) 25 mg DAILY ORAL 06/18/18 09:00 07/18/18 08:59 06/18/18 10:35 Metoprolol Tartrate (Lopressor) 50 mg EVERY 12 HOURS ORAL 06/17/18 21:00 07/17/18 20:59 06/18/18 10:34 Montelukast Sodium (Singulair) 10 mg DAILY ORAL 06/18/18 09:00 07/18/18 08:59 06/18/18 10:35 Olanzapine (ZyPREXA Zydis) 10 mg ONCE ORAL 06/18/18 10:45 06/18/18 12:00 Piperacillin Sod/ Tazobactam Sod 3.375 gm/Dextrose 55 ml @ 13.75 mls/ hr Q8HR IV 06/17/18 21:00 06/24/18 20:59 06/18/18 06:16 Rivaroxaban (Xarelto) 15 mg DAILY ORAL 06/18/18 09:00 07/18/18 08:59 06/18/18 10:35 Vancomycin HCl (Vanco rx to dose) 1 ea DAILY PRN MISC Vanco per Rx 06/17/18 20:15 07/17/18 18:29 Assessment/Plan Problem List: (1) Acute metabolic encephalopathy ICD Codes: G93.41 - Metabolic encephalopathy SNOMED: [id number], [id number] Assessment/Plan Zyprexa Zydis 10mg x 1time Zyprexa 2.5mg tid Ativan prn for break through agitation cont restraints. Massiel Blanco MD Jun 18, 2018 10:54
[2018-06-18 12:00] VITALS: BP 107/61
[2018-06-18 16:00] VITALS: BP 119/70
--- NOTE | 2018-06-18 16:08 | Cardiology Report ---
APPROVED REPORT EXAM: Two-dimensional and M-mode echocardiogram with Doppler and color Doppler. INDICATION Congestive Heart Failure M-Mode DIMENSIONS IVSd1.3 (0.7-1.1cm)Left Atrium (MM)4.9 (1.6-4.0cm) LVDd3.5 (3.5-5.6cm)Aortic Root3.8 (2.0-3.7cm) PWd1.4 (0.7-1.1cm)Aortic Cusp Exc.1.5 (1.5-2.0cm) IVSs1.6 cm LVDs2.3 (2.5-4.0cm) PWs1.5 cm Technically difficult study due to pts resistance . Normal left ventricular chamber size, systolic function and wall motion. Left ventricular ejection fraction estimated to be 60-65 %. Mild left ventricular hypertrophy by 2-D. No evidence of pericardial effusion. Mild bi-atrial enlargement . Right ventricular chamber sizes is within normal limits. Focal aortic valve sclerosis with reduced cusp excursion. Thickened mitral valve leaflets with normal excursion. Mitral annulus and aortic root calcification. Normal pulmonic valve structure. Normal tricuspid valve structure. A color flow and spectral Doppler study was performed and revealed: Mild aortic regurgitation. Peak aortic valve gradient of 20 mm Hg and a mean of 10 mmHg. Aortic valve area 1.8 cm2 calculated by continuity equation, c/w mild A.S. Trace mitral regurgitation. Left ventricular diastolic function can not determined due to arrhythmia . Moderate tricuspid regurgitation. Tricuspid systolic velocities suggests peak right ventricular systolic pressure of 50 mmHg,consistent with moderate pulmonary hypertension. No Pulmonic regurgitation present.
[2018-06-18] MEDS: LORazepam 1mg tab ORAL PRN ×2 (16:47→22:22)
--- NOTE | 2018-06-18 17:15 | Cardiology Report ---
APPROVED REPORT EKG Measurement Heart [id number] Atrial fibrillation with rapid ventricular response Abnormal ECG
--- NOTE | 2018-06-18 17:36 | Consultation ---
Consult Note Consult Note # [id number] Andrew Oswald MD Jun 18, 2018 17:36
[2018-06-18] MEDS: OLANZapine 2.5mg tab ORAL SCH (17:45)
--- NOTE | 2018-06-18 19:30 | Consultation ---
DATE OF CONSULTATION: 06/18/2018 INFECTIOUS DISEASE CONSULTATION CONSULTING PHYSICIAN: Andrew Oswald M.D. REFERRING PHYSICIAN: Paul Rapp M.D. REASON FOR CONSULTATION: Evaluation of the patient for pneumonia and antibiotic management. HISTORY OF PRESENT ILLNESS: This is an 88-year-old male with multiple medical problems, who was admitted to this medical center due to shortness of breath and lethargy. The patient is not able to provide detailed information. Chest x-ray showed bilateral atelectasis. Infectious Disease consultation has been requested for evaluation of the patient for possible sepsis in view of increase of white blood cells to 22. the patient has 16 bands. PAST MEDICAL HISTORY: 1. AFib. 2. Dementia. 3. Hypertension. 4. COPD. 5. Renal insufficiency. 6. Anemia. ALLERGIES: Ibuprofen. FAMILY HISTORY: Unavailable. REVIEW OF SYSTEMS: Unobtainable. MEDICATIONS: Zosyn and vancomycin. PHYSICAL EXAMINATION: VITAL SIGNS: Temperature 97.5, pulse 86, respiratory rate 18, and blood pressure 107/61. HEENT: No pale conjunctivae. No icterus. NECK: No lymphadenopathy. CHEST: Coarse breathing sounds. HEART: S1, S2. ABDOMEN: Soft, nontender. EXTREMITIES: No cyanosis at this time. SKIN: The patient has discoloration of the skin on the patient's lower extremity. NEUROLOGIC: The patient is awake and confused. LABORATORY DATA: White blood cells 24.8 at the time of admission and today it is 22.6, hemoglobin 11, . UA unremarkable. BUN 34, creatinine 1.5. ALT, AST, alkaline phosphatase unremarkable. Chest x-ray, bilateral atelectasis. ASSESSMENT: The patient is an 88-year-old male with: 1. Leukocytosis. 2. Probable sepsis. 3. Probable pneumonia (despite of unremarkable chest x-ray). 4. Rule out bacteremia. PLAN: 1. We will continue the patient on IV vancomycin and Zosyn, day #1. 2. Monitor CBC. 3. Monitor BMP. 4. Monitor cultures (urine, blood, sputum). 5. Flu screen. 6. Monitor laboratories. 7. CMP. 8. Repeat chest x-ray in the morning. 9. Based on the patient's clinical course and laboratories, we will do further recommendation. Thank you, Dr. Rapp, for allowing me to participate in the care of this patient. I will follow the patient with you during this hospitalization. Andrew Oswald M.D. DR: Thomas JOB#: [id number] CC:
[2018-06-18 20:00] VITALS: BP 120/75
[2018-06-18] MEDS: Atorvastatin 20mg tab ORAL SCH (20:59)
[2018-06-18] MEDS ORDERED: Vancomycin 750mg/NS 250ml IVPB SCH (21:00)
[2018-06-18] MEDS: Vancomycin 750mg/NS 250ml IVPB SCH ×2 (22:56→23:51)
[2018-06-19] VITALS: BP 111/77
[2018-06-19] MEDS ORDERED: Haloperidol 5mg/ml Inj IM ONE
[2018-06-19] MEDS ORDERED: DiphenhydrAMINE 50mg/ml Inj IM ONE
[2018-06-19] MEDS ORDERED: LORazepam Inj 2mg/ml 1ml IM ONE
[2018-06-19] MEDS: Albuterol/Ipratropium 3ml neb HHN SCH ×6 (03:05→23:00)
[2018-06-19 04:00] VITALS: BP 132/63
[2018-06-19] MEDS: Piperacillin/Tazobactam 3.375 GM in D5W 55 ML IV SCH ×3 (05:25→21:20)
[2018-06-19 06:34] LABS: HEMATOCRIT 33.7 % (42.0-52.0); HEMOGLOBIN 11.4 G/DL (14.2-18.0); MEAN CORPUSCULAR VOLUME 98 FL (80-99); PLATELET COUNT 143 K/UL (150-450); RED BLOOD COUNT 3.43 M/UL (4.70-6.10); RED CELL DISTRIBUTION WIDTH 13.1 % (11.6-14.8); WHITE BLOOD COUNT 18.8 K/UL (4.8-10.8)
[2018-06-19 06:41] LABS: ANION GAP 10 mmol/L (5-15); BLOOD UREA NITROGEN 40 mg/dL (7-18); CALCIUM 8.8 MG/DL (8.5-10.1); CARBON DIOXIDE 23 MMOL/L (21-32); CHLORIDE 107 MMOL/L (98-107); CREATININE 1.7 MG/DL (0.55-1.30); POTASSIUM 4.7 MMOL/L (3.5-5.1); SODIUM 140 MMOL/L (136-145)
--- NOTE | 2018-06-19 07:21 | General Progress Note ---
Assessment/Plan Problem List: (1) Acute metabolic encephalopathy Assessment & Plan: due to sepsis/dementia appreciate psych evaluation .. cont fluids and abx cont hydration appreciate cards and ID recs tele monitor closely ICD Codes: G93.41 - Metabolic encephalopathy SNOMED: 55623266, 467134248 (2) Sepsis Assessment & Plan: unknown source, likely pneumonia wbc improved to 18 from 22 cont abx per ID recs bcx ngtd ICD Codes: A41.9 - Sepsis, unspecified organism SNOMED: 41928972, 175182385 Qualifiers: Qualified Codes: A41.9 - Sepsis, unspecified organism (3) COPD exacerbation Assessment & Plan: breathing tx hold off steroids due to sepsis monitor tele ICD Codes: J44.1 - Chronic obstructive pulmonary disease with (acute) exacerbation SNOMED: 432209878 (4) Atrial fibrillation with RVR Assessment & Plan: resumed home anticoagulation cards consulted rate controlled now tele monitor ICD Codes: I48.91 - Unspecified atrial fibrillation SNOMED: 150029820342896 (5) NSTEMI (non-ST elevated myocardial infarction) Assessment & Plan: trop .033 TYPE II NSTEMI due to demand ischemia from sepsis/copd exacerbation TTE reviewed, EF 60-65% cards following, appreciate recs ICD Codes: I21.4 - Non-ST elevation (NSTEMI) myocardial infarction SNOMED: 248734838 (6) Demand ischemia Assessment & Plan: due to sepsis and copd exacerbation management per above monitor cards following ICD Codes: I24.8 - Other forms of acute ischemic heart disease SNOMED: 111306866 (7) Hyperkalemia Assessment & Plan: stable ICD Codes: E87.5 - Hyperkalemia SNOMED: 77350924, 736774675 (8) TUTU (acute kidney injury) Assessment & Plan: off lasix off fluids cards following ICD Codes: N17.9 - Acute kidney failure, unspecified SNOMED: 79285547 Status: stable Assessment/Plan I have spent over 56 minutes regarding patient care and counseling and 39 minutes of face to face time with the patient Subjective Allergies: Coded Allergies: IBUPROFEN (Verified Allergy, Unknown, 06/17/18) Subjective f/u altered mental status, sepsis due to pneumonia, nstemi type 2 psych, cards, ID following currently not responsive, very somnolent, gets very agitated during the day no acute events overnight ROS: unable to obtain ROS due to current medical condition Objective Last 24 Hour Vital Signs Date Time Temp Pulse Resp B/P (MAP) Pulse Ox O2 Delivery O2 Flow Rate FiO2 06/19/18 07:06 Room Air 21 06/19/18 07:06 97 Room Air 21 06/19/18 07:06 85 20 97 Room Air 21 06/19/18 04:00 97.6 91 20 132/63 (86) 95 06/19/18 04:00 100 06/19/18 03:14 110 18 95 Room Air 21 06/19/18 03:07 114 20 93 Room Air 21 06/19/18 00:00 116 06/19/18 00:00 97.2 124 18 111/77 (88) 93 06/18/18 23:51 114 18 99 Room Air 21 06/18/18 23:40 118 20 99 Room Air 21 06/18/18 21:00 Nasal Cannula 2.0 06/18/18 20:58 77 120/75 06/18/18 20:07 77 18 99 Room Air 21 06/18/18 20:02 99 Room Air 06/18/18 20:00 97.7 112 16 120/75 (90) 94 06/18/18 20:00 123 06/18/18 19:59 120 20 99 Room Air 21 06/18/18 16:00 110 06/18/18 16:00 97.0 113 20 119/70 (86) 95 06/18/18 15:15 109 17 98 Room Air 21 06/18/18 15:02 103 20 93 Room Air 21 06/18/18 12:00 103 06/18/18 12:00 97.5 102 22 107/61 (76) 95 06/18/18 11:32 113 18 98 Room Air 21 06/18/18 11:20 116 20 94 Room Air 21 06/18/18 10:35 107/61 06/18/18 10:34 127 107/61 06/18/18 09:00 Nasal Cannula 2.0 06/18/18 08:00 98.0 127 20 107/61 (76) 95 06/18/18 08:00 94 Intake and Output 06/18/18 06/19/18 19:00 07:00 Intake Total 175.00 ml 28 ml Output Total 500 ml Balance -325.00 ml 28 ml Intake Oral 120 ml 20 ml IV Total 55.00 ml 8 ml Output Urine Total 500 ml # Voids 2 Laboratory Tests 06/18/18 08:30: Lactic Acid Level 3.90H, Troponin I 0.060H 06/18/18 18:30: Random Vancomycin Level 11.0 06/19/18 05:30: White Blood Count 18.8H, Red Blood Count 3.43L, Hemoglobin 11.4L, Hematocrit 33.7L, Mean Corpuscular Volume 98, Mean Corpuscular Hemoglobin 33.2H, Mean Corpuscular Hemoglobin Concent 33.9, Red Cell Distribution Width 13.1, Platelet Count 143L, Mean Platelet Volume 6.0L, Neutrophils (%) (Auto) , Lymphocytes (%) (Auto) , Monocytes (%) (Auto) , Eosinophils (%) (Auto) , Basophils (%) (Auto) , Neutrophils % (Manual) [Pending], Lymphocytes % (Manual) [Pending], Platelet Estimate [Pending], Platelet Morphology [Pending], Sodium Level 140, Potassium Level 4.7, Chloride Level 107, Carbon Dioxide Level 23, Anion Gap 10, Blood Urea Nitrogen 40H, Creatinine 1.7H, Estimat Glomerular Filtration Rate , Glucose Level 118H, Calcium Level 8.8 Height (Feet): 5 Height (Inches): 8.00 Weight (Pounds): 173 General Appearance: no apparent distress, lethargic EENT: PERRL/EOMI, normal ENT inspection, TMs normal, pharynx normal Neck: non-tender, normal alignment, supple, normal inspection Cardiovascular: normal peripheral pulses, normal rate, regular rhythm Respiratory/Chest: chest wall non-tender, lungs clear, normal breath sounds, no respiratory distress, no accessory muscle use Abdomen: normal bowel sounds, non tender, soft, no organomegaly, no mass Extremities: non-tender, normal inspection Neurologic: unresponsive Skin: normal pigmentation, warm/dry Paul Rapp MD Jun 19, 2018 07:21
[2018-06-19 07:58] VITALS: BP 122/77
[2018-06-19] MEDS: Montelukast 10mg tablet ORAL SCH (08:14)
[2018-06-19] MEDS: Losartan 25mg tab ORAL SCH (08:14)
[2018-06-19] MEDS: Xarelto 15mg tab ORAL SCH (08:14)
[2018-06-19] MEDS: OLANZapine 2.5mg tab ORAL SCH (08:14)
[2018-06-19] MEDS: Metoprolol Tartrate 50mg tab ORAL SCH ×2 (08:14→21:19)
--- NOTE | 2018-06-19 10:03 | Diagnostic Imaging Report ---
Indications: Needs long-term IV access Technique: Procedure performed at bedside. Procedural timeout performed. Exam was extremely difficult, as patient was extremely combative. Ultrasound confirms patent compressible left basilic vein. Total sterile technique, including sterile probe cover and sterile gel, sterile gloves, hand hygiene, hat, mask,, sterile gown, large sterile drape, and preparation with 2% chlorhexidine utilized. Local anesthesia with 1% lidocaine. Under real-time ultrasound guidance, puncture left basilic vein using 21-gauge needle, passage 0.018 guidewire, which personally passed a few centimeters. Multiple punctures attempted in multiple sites, consistently demonstrating confirmation by ultrasound of intraluminal placement of the needle tip and spontaneous blood return, but the guidewire was never passed beyond a few centimeters. It was ultimately decided to place a midline. The basilic vein was punctured using 21-gauge needle, passage 0.018 guidewire, followed by introduction of a 4 [place] micropuncture introducer, which was left in place as midline IV cannula. The catheter was fixed to the skin, aspirated and flushed. Followup chest/are x-ray obtained, documents catheter tip position at the axillary vein Impression: Unsuccessful attempted bedside PICC placement, due to combative patient, and inability to pass guidewire centrally despite multiple successful venous cannulations. A midline was therefore placed
--- NOTE | 2018-06-19 11:19 | Diagnostic Imaging Report ---
Indication: Shortness of breath Technique: One view of the chest Comparison: 06/17/2018 Findings: There is patchy infiltrate and atelectasis at the right lung base, slightly increased from previous exam. There is increasing left basilar atelectasis and likely pleural fluid. The heart size is borderline enlarged. The aorta is tortuous and calcified. Impression: Increased right basilar infiltrate and atelectasis New or increased left basilar atelectasis and pleural fluid, over 2 days
[2018-06-19 12:00] VITALS: BP 122/74
[2018-06-19] MEDS: LORazepam 1mg tab ORAL PRN (12:18)
[2018-06-19] MEDS ORDERED: NS 275ml ONE (15:38)
[2018-06-19] MEDS ORDERED: Tubing IV Secondary IV ONE (15:38)
[2018-06-19] MEDS ORDERED: NS 500ML ONE (15:38)
--- NOTE | 2018-06-19 16:10 | Infectious Diseases Prog Note ---
Assessment/Plan Assessment/Plan ASSESSMENT: The patient is an 88-year-old male with: Leukocytosis, improving Probable sepsis. Probable pneumonia 06/19 Chest x-ray : Increased right basilar infiltrate and atelectasis New or increased left basilar atelectasis and pleural fluid, over 2 days Rule out probable bacteremia Flu screen : Neg AFib Dementia Hypertension COPD Renal insufficiency Anemia PLAN: Continue the patient on IV vancomycin and Zosyn, day # 2 Monitor CBC Monitor BMP Monitor cultures (urine, blood, sputum) Monitor CXR Subjective Allergies: Coded Allergies: IBUPROFEN (Verified Allergy, Unknown, 06/17/18) Subjective confused Objective Vital Signs Last 24 Hour Vital Signs Date Time Temp Pulse Resp B/P (MAP) Pulse Ox O2 Delivery O2 Flow Rate FiO2 06/19/18 15:27 98 18 98 Room Air 21 06/19/18 15:17 94 18 96 Room Air 21 06/19/18 12:00 97.6 104 20 122/74 (90) 95 06/19/18 11:45 113 06/19/18 11:44 99 18 100 Room Air 21 06/19/18 11:32 97 20 97 Room Air 21 06/19/18 08:41 Nasal Cannula 2.0 06/19/18 08:38 124 06/19/18 08:14 120 122/77 06/19/18 08:14 122/77 06/19/18 07:58 97.6 120 20 122/77 (92) 95 06/19/18 07:12 91 18 100 Room Air 21 06/19/18 07:06 Room Air 21 06/19/18 07:06 97 Room Air 21 06/19/18 07:06 85 20 97 Room Air 21 06/19/18 04:00 97.6 91 20 132/63 (86) 95 06/19/18 04:00 100 06/19/18 03:14 110 18 95 Room Air 21 06/19/18 03:07 114 20 93 Room Air 21 06/19/18 00:00 116 06/19/18 00:00 97.2 124 18 111/77 (88) 93 06/18/18 23:51 114 18 99 Room Air 21 06/18/18 23:40 118 20 99 Room Air 21 06/18/18 21:00 Nasal Cannula 2.0 06/18/18 20:58 77 120/75 06/18/18 20:07 77 18 99 Room Air 21 06/18/18 20:02 99 Room Air 06/18/18 20:00 97.7 112 16 120/75 (90) 94 06/18/18 20:00 123 06/18/18 19:59 120 20 99 Room Air 21 Height (Feet): 5 Height (Inches): 8.00 Weight (Pounds): 173 HEENT: anicteric Respiratory/Chest: no respiratory distress Cardiovascular: no gallop/murmur Abdomen: no organomegaly Microbiology Date/Time Source Procedure Growth Status 06/17/18 17:00 Blood Blood Culture - Preliminary NO GROWTH AFTER 24 HOURS Resulted 06/17/18 16:45 Blood Blood Culture - Preliminary NO GROWTH AFTER 24 HOURS Resulted 06/18/18 18:00 Nasal Nares Influenza Types A,B Antigen (MONIQUE) - Final Complete 06/17/18 20:30 Rectum Received Laboratory Tests Test 06/18/18 18:30 06/19/18 05:30 Random Vancomycin Level 11.0 ug/mL White Blood Count 18.8 K/UL (4.8-10.8) H Red Blood Count 3.43 M/UL (4.70-6.10) L Hemoglobin 11.4 G/DL (14.2-18.0) L Hematocrit 33.7 % (42.0-52.0) L Mean Corpuscular Volume 98 FL (80-99) Mean Corpuscular Hemoglobin 33.2 PG (27.0-31.0) H Mean Corpuscular Hemoglobin Concent 33.9 G/DL (32.0-36.0) Red Cell Distribution Width 13.1 % (11.6-14.8) Platelet Count 143 K/UL (150-450) L Mean Platelet Volume 6.0 FL (6.5-10.1) L Neutrophils (%) (Auto) % (45.0-75.0) Lymphocytes (%) (Auto) % (20.0-45.0) Monocytes (%) (Auto) % (1.0-10.0) Eosinophils (%) (Auto) % (0.0-3.0) Basophils (%) (Auto) % (0.0-2.0) Differential Total Cells Counted 100 Neutrophils % (Manual) 91 % (45-75) H Lymphocytes % (Manual) 4 % (20-45) L Monocytes % (Manual) 5 % (1-10) Eosinophils % (Manual) 0 % (0-3) Basophils % (Manual) 0 % (0-2) Band Neutrophils 0 % (0-8) Platelet Estimate Decreased L Platelet Morphology Normal Macrocytosis 1+ Sodium Level 140 MMOL/L (136-145) Potassium Level 4.7 MMOL/L (3.5-5.1) Chloride Level 107 MMOL/L (98-107) Carbon Dioxide Level 23 MMOL/L (21-32) Anion Gap 10 mmol/L (5-15) Blood Urea Nitrogen 40 mg/dL (7-18) H Creatinine 1.7 MG/DL (0.55-1.30) H Estimat Glomerular Filtration Rate mL/min (>60) Glucose Level 118 MG/DL (74-106) H Calcium Level 8.8 MG/DL (8.5-10.1) Current Medications Medications (Trade) Dose Ordered Sig/Leanna Route PRN Reason Start Time Stop Time Status Last Admin Dose Admin Albuterol/ Ipratropium (Albuterol/ Ipratropium) 3 ml Q4HRT HHN 06/17/18 19:00 06/22/18 18:59 06/19/18 15:15 Atorvastatin Calcium (Lipitor) 20 mg BEDTIME ORAL 06/17/18 21:00 07/17/18 20:59 06/18/18 20:59 Lorazepam (Ativan) 1 mg Q4H PRN ORAL For Anxiety 06/18/18 11:00 06/25/18 10:59 06/19/18 12:18 Losartan Potassium (Cozaar) 25 mg DAILY ORAL 06/18/18 09:00 07/18/18 08:59 06/19/18 08:14 Metoprolol Tartrate (Lopressor) 50 mg EVERY 12 HOURS ORAL 06/17/18 21:00 07/17/18 20:59 06/19/18 08:14 Montelukast Sodium (Singulair) 10 mg DAILY ORAL 06/18/18 09:00 07/18/18 08:59 06/19/18 08:14 Olanzapine (ZyPREXA) 5 mg THREE TIMES A DAY ORAL 06/19/18 13:00 07/19/18 12:59 06/19/18 13:37 Piperacillin Sod/ Tazobactam Sod 3.375 gm/Dextrose 55 ml @ 13.75 mls/ hr Q8HR IV 06/17/18 21:00 06/24/18 20:59 06/19/18 13:37 Rivaroxaban (Xarelto) 15 mg DAILY ORAL 06/18/18 09:00 07/18/18 08:59 06/19/18 08:14 Vancomycin HCl (Vanco rx to dose) 1 ea DAILY PRN MISC Vanco per Rx 06/17/18 20:15 07/17/18 18:29 Vancomycin/Sodium Chloride 250 ml @ 166.667 mls/hr Q48H IVPB 06/18/18 20:30 06/23/18 20:29 Andrew Oswald MD Jun 19, 2018 16:10
[2018-06-19 16:19] VITALS: BP 155/80
--- NOTE | 2018-06-19 17:30 | Cardiology Progress Note ---
Assessment/Plan Status: stable Assessment/Plan Assessment/Plan Dementia Sepsis/elevated lactate/elevated WBC COPD AFIB TUTU Elevated Troponin -Empiric Abx -Cultures -IV fluids, trend lactate -Pulmonary toilet -Stress dose steroids if not better -Continue rate control, no indication for cardioversion -Defer cardiac cath -Trend troponin -Continue anticoagulation -Echocardiogram to evaluate LV function given elevated BNP --> normal LV function, no indication for diuresis at this time -Psych to manage agitation Subjective Cardiovascular: Reports: no symptoms Respiratory: Reports: no symptoms Gastrointestinal/Abdominal: Reports: no symptoms Genitourinary: Reports: no symptoms Subjective Patient remained agitated throughout the day, no acute events, WBC improved, troponin mildly elevated, 0.6, Echo LVEF 60% with no wall motion abnormalities Objective Last 24 Hour Vital Signs Date Time Temp Pulse Resp B/P (MAP) Pulse Ox O2 Delivery O2 Flow Rate FiO2 06/19/18 16:19 97.6 109 20 155/80 (105) 95 06/19/18 15:27 98 18 98 Room Air 21 06/19/18 15:23 118 06/19/18 15:17 94 18 96 Room Air 21 06/19/18 12:00 97.6 104 20 122/74 (90) 95 06/19/18 11:45 113 06/19/18 11:44 99 18 100 Room Air 21 06/19/18 11:32 97 20 97 Room Air 21 06/19/18 08:41 Nasal Cannula 2.0 06/19/18 08:38 124 06/19/18 08:14 120 122/77 06/19/18 08:14 122/77 06/19/18 07:58 97.6 120 20 122/77 (92) 95 06/19/18 07:12 91 18 100 Room Air 21 06/19/18 07:06 Room Air 21 06/19/18 07:06 97 Room Air 21 06/19/18 07:06 85 20 97 Room Air 21 06/19/18 04:00 97.6 91 20 132/63 (86) 95 06/19/18 04:00 100 06/19/18 03:14 110 18 95 Room Air 21 06/19/18 03:07 114 20 93 Room Air 21 06/19/18 00:00 116 06/19/18 00:00 97.2 124 18 111/77 (88) 93 06/18/18 23:51 114 18 99 Room Air 21 06/18/18 23:40 118 20 99 Room Air 21 06/18/18 21:00 Nasal Cannula 2.0 06/18/18 20:58 77 120/75 06/18/18 20:07 77 18 99 Room Air 21 06/18/18 20:02 99 Room Air 06/18/18 20:00 97.7 112 16 120/75 (90) 94 06/18/18 20:00 123 06/18/18 19:59 120 20 99 Room Air 21 General Appearance: no apparent distress, alert, agitated EENT: PERRL/EOMI, normal ENT inspection, TMs normal, pharynx normal Neck: non-tender, normal alignment, supple, normal inspection, no JVD Rhythm: NSR Cardiovascular: normal peripheral pulses, normal rate, regular rhythm Respiratory/Chest: chest wall non-tender, lungs clear, normal breath sounds Abdomen: normal bowel sounds, non tender, soft, no organomegaly Extremities: normal range of motion Neurologic: dinkey operator II-XII grossly normal, no motor/sensory deficits Intake and Output 06/18/18 06/19/18 19:00 07:00 Intake Total 175.00 ml 41.75 ml Output Total 500 ml Balance -325.00 ml 41.75 ml Intake Oral 120 ml 20 ml IV Total 55.00 ml 21.75 ml Output Urine Total 500 ml # Voids 2 Laboratory Tests Test 06/18/18 18:30 06/19/18 05:30 Random Vancomycin Level 11.0 ug/mL White Blood Count 18.8 K/UL (4.8-10.8) H Red Blood Count 3.43 M/UL (4.70-6.10) L Hemoglobin 11.4 G/DL (14.2-18.0) L Hematocrit 33.7 % (42.0-52.0) L Mean Corpuscular Volume 98 FL (80-99) Mean Corpuscular Hemoglobin 33.2 PG (27.0-31.0) H Mean Corpuscular Hemoglobin Concent 33.9 G/DL (32.0-36.0) Red Cell Distribution Width 13.1 % (11.6-14.8) Platelet Count 143 K/UL (150-450) L Mean Platelet Volume 6.0 FL (6.5-10.1) L Neutrophils (%) (Auto) % (45.0-75.0) Lymphocytes (%) (Auto) % (20.0-45.0) Monocytes (%) (Auto) % (1.0-10.0) Eosinophils (%) (Auto) % (0.0-3.0) Basophils (%) (Auto) % (0.0-2.0) Differential Total Cells Counted 100 Neutrophils % (Manual) 91 % (45-75) H Lymphocytes % (Manual) 4 % (20-45) L Monocytes % (Manual) 5 % (1-10) Eosinophils % (Manual) 0 % (0-3) Basophils % (Manual) 0 % (0-2) Band Neutrophils 0 % (0-8) Platelet Estimate Decreased L Platelet Morphology Normal Macrocytosis 1+ Sodium Level 140 MMOL/L (136-145) Potassium Level 4.7 MMOL/L (3.5-5.1) Chloride Level 107 MMOL/L (98-107) Carbon Dioxide Level 23 MMOL/L (21-32) Anion Gap 10 mmol/L (5-15) Blood Urea Nitrogen 40 mg/dL (7-18) H Creatinine 1.7 MG/DL (0.55-1.30) H Estimat Glomerular Filtration Rate mL/min (>60) Glucose Level 118 MG/DL (74-106) H Calcium Level 8.8 MG/DL (8.5-10.1) Microbiology Date/Time Source Procedure Growth Status 06/17/18 17:00 Blood Blood Culture - Preliminary NO GROWTH AFTER 24 HOURS Resulted 06/17/18 16:45 Blood Blood Culture - Preliminary NO GROWTH AFTER 24 HOURS Resulted 06/18/18 18:00 Nasal Nares Influenza Types A,B Antigen (MONIQUE) - Final Complete 06/17/18 20:30 Rectum Received William Cruz MD Jun 19, 2018 17:30
[2018-06-19 20:00] VITALS: BP 158/81
--- NOTE | 2018-06-19 20:06 | General Progress Note ---
Assessment/Plan Problem List: (1) Acute metabolic encephalopathy ICD Codes: G93.41 - Metabolic encephalopathy SNOMED: 40102515, 207133298 Status: unchanged Assessment/Plan Zyprexa 5 mg tid Ativan prn for break through agitation cont restraints. Subjective Neurologic/Psychiatric: Reports: anxiety, depressed, emotional problems Allergies: Coded Allergies: IBUPROFEN (Verified Allergy, Unknown, 06/17/18) Objective Last 24 Hour Vital Signs Date Time Temp Pulse Resp B/P (MAP) Pulse Ox O2 Delivery O2 Flow Rate FiO2 06/19/18 16:19 97.6 109 20 155/80 (105) 95 06/19/18 15:27 98 18 98 Room Air 21 06/19/18 15:23 118 06/19/18 15:17 94 18 96 Room Air 21 06/19/18 12:00 97.6 104 20 122/74 (90) 95 06/19/18 11:45 113 06/19/18 11:44 99 18 100 Room Air 21 06/19/18 11:32 97 20 97 Room Air 21 06/19/18 08:41 Nasal Cannula 2.0 06/19/18 08:38 124 06/19/18 08:14 120 122/77 06/19/18 08:14 122/77 06/19/18 07:58 97.6 120 20 122/77 (92) 95 06/19/18 07:12 91 18 100 Room Air 21 06/19/18 07:06 Room Air 21 06/19/18 07:06 97 Room Air 21 06/19/18 07:06 85 20 97 Room Air 21 06/19/18 04:00 97.6 91 20 132/63 (86) 95 06/19/18 04:00 100 06/19/18 03:14 110 18 95 Room Air 21 06/19/18 03:07 114 20 93 Room Air 21 06/19/18 00:00 116 06/19/18 00:00 97.2 124 18 111/77 (88) 93 06/18/18 23:51 114 18 99 Room Air 21 06/18/18 23:40 118 20 99 Room Air 21 06/18/18 21:00 Nasal Cannula 2.0 06/18/18 20:58 77 120/75 06/18/18 20:07 77 18 99 Room Air 21 Intake and Output 06/18/18 06/19/18 19:00 07:00 Intake Total 175.00 ml 41.75 ml Output Total 500 ml Balance -325.00 ml 41.75 ml Intake Oral 120 ml 20 ml IV Total 55.00 ml 21.75 ml Output Urine Total 500 ml # Voids 2 Laboratory Tests 06/19/18 05:30: White Blood Count 18.8H, Red Blood Count 3.43L, Hemoglobin 11.4L, Hematocrit 33.7L, Mean Corpuscular Volume 98, Mean Corpuscular Hemoglobin 33.2H, Mean Corpuscular Hemoglobin Concent 33.9, Red Cell Distribution Width 13.1, Platelet Count 143L, Mean Platelet Volume 6.0L, Neutrophils (%) (Auto) , Lymphocytes (%) (Auto) , Monocytes (%) (Auto) , Eosinophils (%) (Auto) , Basophils (%) (Auto) , Differential Total Cells Counted 100, Neutrophils % (Manual) 91H, Lymphocytes % (Manual) 4L, Monocytes % (Manual) 5, Eosinophils % (Manual) 0, Basophils % ( Manual) 0, Band Neutrophils 0, Platelet Estimate DecreasedL, Platelet Morphology Normal, Macrocytosis 1+, Sodium Level 140, Potassium Level 4.7, Chloride Level 107, Carbon Dioxide Level 23, Anion Gap 10, Blood Urea Nitrogen 40H, Creatinine 1.7H, Estimat Glomerular Filtration Rate , Glucose Level 118H, Calcium Level 8.8 Height (Feet): 5 Height (Inches): 8.00 Weight (Pounds): 173 General Appearance: alert, lethargic, confused, moderate distress, agitated Massiel Blanco MD Jun 19, 2018 20:06
[2018-06-19] MEDS: Atorvastatin 20mg tab ORAL SCH (21:18)
[2018-06-20] VITALS: BP 154/95
[2018-06-20] MEDS: LORazepam 1mg tab ORAL PRN ×2 (01:03→23:03)
[2018-06-20] MEDS: Albuterol/Ipratropium 3ml neb HHN SCH ×6 (03:37→23:41)
[2018-06-20 04:00] VITALS: BP 156/84
[2018-06-20] MEDS: Piperacillin/Tazobactam 3.375 GM in D5W 55 ML IV SCH ×3 (05:58→22:17)
[2018-06-20 08:00] VITALS: BP 124/69
--- NOTE | 2018-06-20 08:27 | General Progress Note ---
Assessment/Plan Problem List: (1) Acute metabolic encephalopathy Assessment & Plan: due to sepsis/dementia appreciate psych evaluation .. cont fluids and abx cont hydration appreciate cards and ID recs tele monitor closely ICD Codes: G93.41 - Metabolic encephalopathy SNOMED: 14559617, 817099789 (2) Sepsis Assessment & Plan: unknown source, likely pneumonia wbc improved to 18 from 22 cont abx per ID recs bcx ngtd ICD Codes: A41.9 - Sepsis, unspecified organism SNOMED: 06531864, 804832423 Qualifiers: Qualified Codes: A41.9 - Sepsis, unspecified organism (3) COPD exacerbation Assessment & Plan: breathing tx hold off steroids due to sepsis monitor tele ICD Codes: J44.1 - Chronic obstructive pulmonary disease with (acute) exacerbation SNOMED: 125920276 (4) Atrial fibrillation with RVR Assessment & Plan: resumed home anticoagulation cards consulted rate controlled now tele monitor ICD Codes: I48.91 - Unspecified atrial fibrillation SNOMED: 227683677213136 (5) NSTEMI (non-ST elevated myocardial infarction) Assessment & Plan: trop .033 TYPE II NSTEMI due to demand ischemia from sepsis/copd exacerbation TTE reviewed, EF 60-65% cards following, appreciate recs currently euvolemic ICD Codes: I21.4 - Non-ST elevation (NSTEMI) myocardial infarction SNOMED: 986004267 (6) Demand ischemia Assessment & Plan: due to sepsis and copd exacerbation management per above monitor cards following ICD Codes: I24.8 - Other forms of acute ischemic heart disease SNOMED: 779144220 (7) Hyperkalemia Assessment & Plan: stable ICD Codes: E87.5 - Hyperkalemia SNOMED: 64291891, 073986205 (8) TUTU (acute kidney injury) Assessment & Plan: off lasix off fluids cards following ICD Codes: N17.9 - Acute kidney failure, unspecified SNOMED: 52143417 Assessment/Plan I have spent over 48 minutes regarding patient care and counseling and 39 minutes of face to face time with the patient Subjective Allergies: Coded Allergies: IBUPROFEN (Verified Allergy, Unknown, 06/17/18) Subjective f/u altered mental status, sepsis due to pneumonia, nstemi type 2 psych, cards, ID following currently not responsive, very somnolent, gets very agitated during the day no acute events overnight currently stable on restraints ROS: unable to obtain ROS due to current medical condition Objective Last 24 Hour Vital Signs Date Time Temp Pulse Resp B/P (MAP) Pulse Ox O2 Delivery O2 Flow Rate FiO2 06/20/18 07:01 101 18 99 Room Air 21 06/20/18 06:50 97 Room Air 21 06/20/18 06:50 99 18 97 Room Air 21 06/20/18 06:50 Room Air 21 06/20/18 04:00 116 06/20/18 04:00 97.9 116 20 156/84 (108) 96 06/20/18 03:41 78 20 99 Room Air 21 06/20/18 03:35 96 20 95 Room Air 21 06/20/18 00:00 108 06/20/18 00:00 98.2 119 20 154/95 (114) 95 06/19/18 23:05 Room Air 21 06/19/18 23:05 Room Air 21 06/19/18 21:20 60 20 99 Room Air 21 06/19/18 21:19 120 158/81 06/19/18 21:14 50 20 95 Room Air 21 06/19/18 21:14 Room Air 21 06/19/18 21:12 95 Room Air 21 06/19/18 21:00 Nasal Cannula 2.0 06/19/18 20:00 98.1 118 20 158/81 (106) 95 06/19/18 20:00 118 06/19/18 16:19 97.6 109 20 155/80 (105) 95 06/19/18 15:27 98 18 98 Room Air 06/19/18 15:23 118 06/19/18 15:17 94 18 96 Room Air 21 06/19/18 12:00 97.6 104 20 122/74 (90) 95 06/19/18 11:45 113 06/19/18 11:44 99 18 100 Room Air 06/19/18 11:32 97 20 97 Room Air 06/19/18 08:41 Nasal Cannula 2.0 06/19/18 08:38 124 Intake and Output 06/19/18 06/20/18 19:00 07:00 Intake Total 191.25 ml 240 ml Balance 191.25 ml 240 ml Intake Oral 150 ml 240 ml IV Total 41.25 ml # Voids 2 2 Height (Feet): 5 Height (Inches): 8.00 Weight (Pounds): 178 General Appearance: no apparent distress, lethargic EENT: normal ENT inspection, TMs normal, pharynx normal Neck: non-tender, normal alignment, supple, normal inspection Cardiovascular: normal peripheral pulses, normal rate, regular rhythm Respiratory/Chest: chest wall non-tender, lungs clear, normal breath sounds, no respiratory distress, no accessory muscle use Abdomen: normal bowel sounds, non tender, soft, no organomegaly, no mass Extremities: normal range of motion, non-tender Neurologic: no motor/sensory deficits, unresponsive Skin: normal pigmentation, warm/dry Paul Rapp MD Jun 20, 2018 08:27
--- NOTE | 2018-06-20 09:01 | Infectious Diseases Prog Note ---
Assessment/Plan Assessment/Plan ASSESSMENT: The patient is an 88-year-old male with: Leukocytosis, improving Probable sepsis. Probable pneumonia 06/19 Chest x-ray : Increased right basilar infiltrate and atelectasis. New or increased left basilar atelectasis and pleural fluid, over 2 days -sp cx p Rule out probable bacteremia -Bcx NTD Flu screen : Neg Afebrile AFib Dementia Hypertension COPD Renal insufficiency Anemia PLAN: Continue the patient on IV vancomycin and Zosyn, day # 3 for PNA pending cultures Monitor CBC Monitor BMP Monitor cultures (urine, blood, sputum) Monitor CXR CBC, CMP am Subjective Allergies: Coded Allergies: IBUPROFEN (Verified Allergy, Unknown, 06/17/18) Subjective afebrile at RA sp cx p Bcx NTD leukocytosis improving Objective Vital Signs Last 24 Hour Vital Signs Date Time Temp Pulse Resp B/P (MAP) Pulse Ox O2 Delivery O2 Flow Rate FiO2 06/20/18 08:00 98.1 106 21 124/69 (87) 99 06/20/18 07:01 101 18 99 Room Air 21 06/20/18 06:50 97 Room Air 21 06/20/18 06:50 99 18 97 Room Air 21 06/20/18 06:50 Room Air 21 06/20/18 04:00 116 06/20/18 04:00 97.9 116 20 156/84 (108) 96 06/20/18 03:41 78 20 99 Room Air 21 06/20/18 03:35 96 20 95 Room Air 21 06/20/18 00:00 108 06/20/18 00:00 98.2 119 20 154/95 (114) 95 06/19/18 23:05 Room Air 21 06/19/18 23:05 Room Air 21 06/19/18 21:20 60 20 99 Room Air 21 06/19/18 21:19 120 158/81 06/19/18 21:14 50 20 95 Room Air 21 06/19/18 21:14 Room Air 21 06/19/18 21:12 95 Room Air 21 06/19/18 21:00 Nasal Cannula 2.0 06/19/18 20:00 98.1 118 20 158/81 (106) 95 06/19/18 20:00 118 06/19/18 16:19 97.6 109 20 155/80 (105) 95 06/19/18 15:27 98 18 98 Room Air 21 06/19/18 15:23 118 06/19/18 15:17 94 18 96 Room Air 21 06/19/18 12:00 97.6 104 20 122/74 (90) 95 06/19/18 11:45 113 06/19/18 11:44 99 18 100 Room Air 21 06/19/18 11:32 97 20 97 Room Air 21 Height (Feet): 5 Height (Inches): 8.00 Weight (Pounds): 178 Microbiology Date/Time Source Procedure Growth Status 06/17/18 17:00 Blood Blood Culture - Preliminary NO GROWTH AFTER 48 HOURS Resulted 06/17/18 16:45 Blood Blood Culture - Preliminary NO GROWTH AFTER 48 HOURS Resulted 06/18/18 18:00 Nasal Nares Influenza Types A,B Antigen (MONIQUE) - Final Complete 06/17/18 20:30 Rectum VRE Culture - Final Enterococcus Faecalis - Vre Enterococcus Faecium - Vre Complete 06/17/18 20:30 Rectum - Final NO CARBAPENEM-RESISTANT ENTEROBACTERI... Complete Current Medications Medications (Trade) Dose Ordered Sig/Leanna Route PRN Reason Start Time Stop Time Status Last Admin Dose Admin Albuterol/ Ipratropium (Albuterol/ Ipratropium) 3 ml Q4HRT HHN 06/17/18 19:00 06/22/18 18:59 06/20/18 06:50 Atorvastatin Calcium (Lipitor) 20 mg BEDTIME ORAL 06/17/18 21:00 07/17/18 20:59 06/19/18 21:18 Lorazepam (Ativan) 1 mg Q4H PRN ORAL For Anxiety 06/18/18 11:00 06/25/18 10:59 06/20/18 01:03 Losartan Potassium (Cozaar) 25 mg DAILY ORAL 06/18/18 09:00 07/18/18 08:59 06/19/18 08:14 Metoprolol Tartrate (Lopressor) 50 mg EVERY 12 HOURS ORAL 06/17/18 21:00 07/17/18 20:59 06/19/18 21:19 Montelukast Sodium (Singulair) 10 mg DAILY ORAL 06/18/18 09:00 07/18/18 08:59 06/19/18 08:14 Olanzapine (ZyPREXA) 5 mg THREE TIMES A DAY ORAL 06/19/18 13:00 07/19/18 12:59 06/19/18 17:17 Piperacillin Sod/ Tazobactam Sod 3.375 gm/Dextrose 55 ml @ 13.75 mls/ hr Q8HR IV 06/17/18 21:00 06/24/18 20:59 06/20/18 05:58 Rivaroxaban (Xarelto) 15 mg DAILY ORAL 06/18/18 09:00 07/18/18 08:59 06/19/18 08:14 Vancomycin HCl (Vanco rx to dose) 1 ea DAILY PRN MISC Vanco per Rx 06/17/18 20:15 07/17/18 18:29 Vancomycin/Sodium Chloride 250 ml @ 166.667 mls/hr Q48H IVPB 06/18/18 20:30 06/23/18 20:29 Safia Irizarry M.D. Jun 20, 2018 09:01
[2018-06-20] MEDS: Metoprolol Tartrate 50mg tab ORAL SCH ×2 (09:33→21:24)
[2018-06-20] MEDS: Losartan 25mg tab ORAL SCH (09:33)
[2018-06-20] MEDS: Montelukast 10mg tablet ORAL SCH (09:33)
[2018-06-20] MEDS: Xarelto 15mg tab ORAL SCH (09:33)
[2018-06-20 12:00] VITALS: BP 129/73
[2018-06-20 16:00] VITALS: BP 134/65
[2018-06-20 20:00] VITALS: BP 140/85
[2018-06-20] MEDS: Vancomycin 750mg/NS 250ml IVPB SCH (20:06)
[2018-06-20] MEDS: Atorvastatin 20mg tab ORAL SCH (21:23)
[2018-06-21] VITALS: BP 152/92
[2018-06-21] MEDS: Albuterol/Ipratropium 3ml neb HHN SCH ×6 (03:23→23:19)
[2018-06-21 04:00] VITALS: BP 124/72
[2018-06-21] MEDS: Piperacillin/Tazobactam 3.375 GM in D5W 55 ML IV SCH ×3 (05:44→21:33)
[2018-06-21 06:40] LABS: BASOPHILS % (AUTO) 0.9 % (0.0-2.0); EOSINOPHILS % (AUTO) 1.6 % (0.0-3.0); HEMATOCRIT 38.1 % (42.0-52.0); HEMOGLOBIN 13.1 G/DL (14.2-18.0); LYMPHOCYTES % (AUTO) 7.8 % (20.0-45.0); MEAN CORPUSCULAR VOLUME 98 FL (80-99); MONOCYTES % (AUTO) 9.8 % (1.0-10.0); NEUTROPHILS % (AUTO) 79.9 % (45.0-75.0); PLATELET COUNT 145 K/UL (150-450); WHITE BLOOD COUNT 9.8 K/UL (4.8-10.8)
[2018-06-21 07:02] LABS: ALANINE AMINOTRANSFERASE 27 U/L (12-78); ALBUMIN 2.8 G/DL (3.4-5.0); ALBUMIN/GLOBULIN RATIO 0.5 (1.0-2.7); ALKALINE PHOSPHATASE 79 U/L (46-116); ANION GAP 12 mmol/L (5-15); ASPARTATE AMINO TRANSFERASE 38 U/L (15-37); BILIRUBIN,TOTAL 1.4 MG/DL (0.2-1.0); BLOOD UREA NITROGEN 38 mg/dL (7-18); CALCIUM 9.3 MG/DL (8.5-10.1); CARBON DIOXIDE 22 MMOL/L (21-32); CHLORIDE 111 MMOL/L (98-107); CREATININE 1.5 MG/DL (0.55-1.30); POTASSIUM 4.5 MMOL/L (3.5-5.1); SODIUM 145 MMOL/L (136-145)
[2018-06-21 07:03] LABS: BILIRUBIN,DIRECT 0.4 MG/DL (0.0-0.3)
--- NOTE | 2018-06-21 07:41 | Infectious Diseases Prog Note ---
Assessment/Plan Assessment/Plan The patient is an 88-year-old male with: Leukocytosis, improving Probable sepsis. Probable pneumonia 06/19 Chest x-ray : Increased right basilar infiltrate and atelectasis. New or increased left basilar atelectasis and pleural fluid, over 2 days -sp cx p Rule out probable bacteremia -Bcx NTD Flu screen : Neg Afebrile AFib Dementia Hypertension COPD Renal insufficiency Anemia PLAN: Continue the patient on IV vancomycin and Zosyn, day # 4 for PNA On D/C could switch to PO levofloxacin to finish a 7 day course ( End date 06/25/18) Monitor CBC Monitor BMP Subjective Allergies: Coded Allergies: IBUPROFEN (Verified Allergy, Unknown, 06/17/18) Subjective Sattign well on room air Patient afebrile Leukocytosis resolved Objective Vital Signs Last 24 Hour Vital Signs Date Time Temp Pulse Resp B/P (MAP) Pulse Ox O2 Delivery O2 Flow Rate FiO2 06/21/18 04:00 121 06/21/18 04:00 97.9 121 20 124/72 (89) 96 06/21/18 03:33 101 20 99 Room Air 21 06/21/18 03:23 88 20 97 Room Air 21 06/21/18 00:00 98.1 102 18 152/92 (112) 99 06/21/18 00:00 102 06/20/18 23:51 92 20 98 Room Air 21 06/20/18 23:41 79 18 96 Room Air 21 06/20/18 21:24 84 140/85 06/20/18 21:00 Nasal Cannula 2.0 06/20/18 20:35 98 18 99 Room Air 21 06/20/18 20:23 93 20 96 Room Air 21 06/20/18 20:00 97.6 89 18 140/85 (103) 97 06/20/18 20:00 89 06/20/18 16:00 84 06/20/18 16:00 97.6 84 18 134/65 (88) 100 06/20/18 14:55 123 18 99 Room Air 21 06/20/18 14:43 118 21 97 Room Air 21 06/20/18 12:00 80 06/20/18 12:00 97.5 80 18 129/73 (91) 100 06/20/18 11:21 88 16 99 Room Air 21 06/20/18 11:10 80 16 99 Room Air 21 06/20/18 09:33 106 124/69 06/20/18 09:33 124/69 06/20/18 09:00 Nasal Cannula 2.0 06/20/18 08:00 98.1 106 21 124/69 (87) 99 06/20/18 08:00 88 Height (Feet): 5 Height (Inches): 8.00 Weight (Pounds): 173 Objective GEN: NAD, Sattign well on RA HEENT: NCAT, MMM, EOMI LUNGS: CTAB, No W CARDS: RRR, S1, S2 Abd: Soft, NT, ND Ext: No C/C/E Microbiology Date/Time Source Procedure Growth Status 06/18/18 18:00 Nasal Nares Influenza Types A,B Antigen (MONIQUE) - Final Complete Laboratory Tests Test 06/21/18 05:10 White Blood Count 9.8 K/UL (4.8-10.8) Red Blood Count 3.90 M/UL (4.70-6.10) L Hemoglobin 13.1 G/DL (14.2-18.0) L Hematocrit 38.1 % (42.0-52.0) L Mean Corpuscular Volume 98 FL (80-99) Mean Corpuscular Hemoglobin 33.6 PG (27.0-31.0) H Mean Corpuscular Hemoglobin Concent 34.4 G/DL (32.0-36.0) Red Cell Distribution Width 13.0 % (11.6-14.8) Platelet Count 145 K/UL (150-450) L Mean Platelet Volume 6.1 FL (6.5-10.1) L Neutrophils (%) (Auto) 79.9 % (45.0-75.0) H Lymphocytes (%) (Auto) 7.8 % (20.0-45.0) L Monocytes (%) (Auto) 9.8 % (1.0-10.0) Eosinophils (%) (Auto) 1.6 % (0.0-3.0) Basophils (%) (Auto) 0.9 % (0.0-2.0) Sodium Level 145 MMOL/L (136-145) Potassium Level 4.5 MMOL/L (3.5-5.1) Chloride Level 111 MMOL/L (98-107) H Carbon Dioxide Level 22 MMOL/L (21-32) Anion Gap 12 mmol/L (5-15) Blood Urea Nitrogen 38 mg/dL (7-18) H Creatinine 1.5 MG/DL (0.55-1.30) H Estimat Glomerular Filtration Rate mL/min (>60) Glucose Level 70 MG/DL (74-106) L Calcium Level 9.3 MG/DL (8.5-10.1) Total Bilirubin 1.4 MG/DL (0.2-1.0) H Direct Bilirubin 0.4 MG/DL (0.0-0.3) H Aspartate Amino Transf (AST/SGOT) 38 U/L (15-37) H Alanine Aminotransferase (ALT/SGPT) 27 U/L (12-78) Alkaline Phosphatase 79 U/L (46-116) Total Protein 7.9 G/DL (6.4-8.2) Albumin 2.8 G/DL (3.4-5.0) L Globulin 5.1 g/dL Albumin/Globulin Ratio 0.5 (1.0-2.7) L Current Medications Medications (Trade) Dose Ordered Sig/Leanna Route PRN Reason Start Time Stop Time Status Last Admin Dose Admin Albuterol/ Ipratropium (Albuterol/ Ipratropium) 3 ml Q4HRT HHN 06/17/18 19:00 06/22/18 18:59 06/21/18 03:23 Atorvastatin Calcium (Lipitor) 20 mg BEDTIME ORAL 06/17/18 21:00 07/17/18 20:59 06/20/18 21:23 Lorazepam (Ativan) 1 mg Q4H PRN ORAL For Anxiety 06/18/18 11:00 06/25/18 10:59 06/20/18 23:03 Losartan Potassium (Cozaar) 25 mg DAILY ORAL 06/18/18 09:00 07/18/18 08:59 06/20/18 09:33 Metoprolol Tartrate (Lopressor) 50 mg EVERY 12 HOURS ORAL 06/17/18 21:00 07/17/18 20:59 06/20/18 21:24 Montelukast Sodium (Singulair) 10 mg DAILY ORAL 06/18/18 09:00 07/18/18 08:59 06/20/18 09:33 Olanzapine (ZyPREXA) 5 mg THREE TIMES A DAY ORAL 06/19/18 13:00 07/19/18 12:59 06/20/18 17:35 Piperacillin Sod/ Tazobactam Sod 3.375 gm/Dextrose 55 ml @ 13.75 mls/ hr Q8HR IV 06/17/18 21:00 06/24/18 20:59 06/21/18 05:44 Rivaroxaban (Xarelto) 15 mg DAILY ORAL 06/18/18 09:00 07/18/18 08:59 06/20/18 09:33 Vancomycin HCl (Vanco rx to dose) 1 ea DAILY PRN MISC Vanco per Rx 06/17/18 20:15 07/17/18 18:29 Vancomycin/Sodium Chloride 250 ml @ 166.667 mls/hr Q48H IVPB 06/18/18 20:30 06/23/18 20:29 06/20/18 20:06 William Morales MD Jun 21, 2018 07:40
[2018-06-21 08:00] VITALS: BP 140/97
[2018-06-21] MEDS: Xarelto 15mg tab ORAL SCH (08:24)
[2018-06-21] MEDS: Montelukast 10mg tablet ORAL SCH (08:24)
[2018-06-21] MEDS: LORazepam 1mg tab ORAL PRN (08:24)
[2018-06-21] MEDS: Losartan 25mg tab ORAL SCH (08:26)
[2018-06-21] MEDS: Metoprolol Tartrate 50mg tab ORAL SCH ×2 (08:26→21:33)
[2018-06-21 12:00] VITALS: BP 124/62
--- NOTE | 2018-06-21 12:30 | General Progress Note ---
Assessment/Plan Problem List: (1) Acute metabolic encephalopathy Assessment & Plan: due to sepsis/dementia appreciate psych evaluation .. cont fluids and abx cont hydration appreciate cards and ID recs tele monitor closely ICD Codes: G93.41 - Metabolic encephalopathy SNOMED: 41725041, 992894143 (2) Sepsis Assessment & Plan: unknown source, likely pneumonia wbc improved to 18 from 22 cont abx per ID recs bcx ngtd ICD Codes: A41.9 - Sepsis, unspecified organism SNOMED: 06824433, 610701570 Qualifiers: Qualified Codes: A41.9 - Sepsis, unspecified organism (3) COPD exacerbation Assessment & Plan: breathing tx hold off steroids due to sepsis monitor tele ICD Codes: J44.1 - Chronic obstructive pulmonary disease with (acute) exacerbation SNOMED: 684613575 (4) Atrial fibrillation with RVR Assessment & Plan: resumed home anticoagulation cards consulted rate controlled now tele monitor ICD Codes: I48.91 - Unspecified atrial fibrillation SNOMED: 921915814288852 (5) NSTEMI (non-ST elevated myocardial infarction) Assessment & Plan: trop .033 TYPE II NSTEMI due to demand ischemia from sepsis/copd exacerbation TTE reviewed, EF 60-65% cards following, appreciate recs currently euvolemic ICD Codes: I21.4 - Non-ST elevation (NSTEMI) myocardial infarction SNOMED: 884063085 (6) Demand ischemia Assessment & Plan: due to sepsis and copd exacerbation management per above monitor cards following ICD Codes: I24.8 - Other forms of acute ischemic heart disease SNOMED: 511826992 (7) Hyperkalemia Assessment & Plan: stable ICD Codes: E87.5 - Hyperkalemia SNOMED: 11930437, 479597442 (8) TUTU (acute kidney injury) Assessment & Plan: off lasix off fluids cards following ICD Codes: N17.9 - Acute kidney failure, unspecified SNOMED: 22299635 Assessment/Plan I have spent over 48 minutes regarding patient care and counseling and 39 minutes of face to face time with the patient Subjective Allergies: Coded Allergies: IBUPROFEN (Verified Allergy, Unknown, 06/17/18) Subjective f/u altered mental status, sepsis due to pneumonia, nstemi type 2 psych, cards, ID following still not responsive to me, eyes closed, very somnolent agitation has been improving since psych has been following no acute events overnight currently stable on restraints ROS: unable to obtain ROS due to current medical condition Objective Last 24 Hour Vital Signs Date Time Temp Pulse Resp B/P (MAP) Pulse Ox O2 Delivery O2 Flow Rate FiO2 06/21/18 12:16 88 20 99 Room Air 21 06/21/18 12:10 85 16 96 Room Air 21 06/21/18 09:00 Room Air 06/21/18 08:26 127 140/97 06/21/18 08:26 140/97 06/21/18 08:00 98.2 127 19 140/97 (111) 94 06/21/18 08:00 119 06/21/18 07:59 95 20 99 Room Air 21 06/21/18 07:51 82 20 97 Room Air 21 06/21/18 04:00 121 06/21/18 04:00 97.9 121 20 124/72 (89) 96 06/21/18 03:33 101 20 99 Room Air 21 06/21/18 03:23 88 20 97 Room Air 21 06/21/18 00:00 98.1 102 18 152/92 (112) 99 06/21/18 00:00 102 06/20/18 23:51 92 20 98 Room Air 21 06/20/18 23:41 79 18 96 Room Air 21 06/20/18 21:24 84 140/85 06/20/18 21:00 Nasal Cannula 2.0 06/20/18 20:35 98 18 99 Room Air 21 06/20/18 20:23 93 20 96 Room Air 21 06/20/18 20:00 97.6 89 18 140/85 (103) 97 06/20/18 20:00 89 06/20/18 16:00 84 06/20/18 16:00 97.6 84 18 134/65 (88) 100 06/20/18 14:55 123 18 99 Room Air 21 06/20/18 14:43 118 21 97 Room Air 21 Intake and Output 06/20/18 06/21/18 19:00 07:00 Intake Total 120 ml 305 ml Balance 120 ml 305 ml Intake Oral 120 ml IV Total 305 ml # Voids 3 2 Laboratory Tests 06/21/18 05:10: White Blood Count 9.8, Red Blood Count 3.90L, Hemoglobin 13.1L, Hematocrit 38.1L , Mean Corpuscular Volume 98, Mean Corpuscular Hemoglobin 33.6H, Mean Corpuscular Hemoglobin Concent 34.4, Red Cell Distribution Width 13.0, Platelet Count 145L, Mean Platelet Volume 6.1L, Neutrophils (%) (Auto) 79.9H, Lymphocytes (%) (Auto) 7.8L, Monocytes (%) (Auto) 9.8, Eosinophils (%) (Auto) 1.6, Basophils (%) (Auto) 0.9, Sodium Level 145, Potassium Level 4.5, Chloride Level 111H, Carbon Dioxide Level 22, Anion Gap 12, Blood Urea Nitrogen 38H, Creatinine 1.5H, Estimat Glomerular Filtration Rate , Glucose Level 70L, Calcium Level 9.3, Total Bilirubin 1.4H, Direct Bilirubin 0.4H, Aspartate Amino Transf (AST/SGOT) 38H, Alanine Aminotransferase (ALT/SGPT) 27, Alkaline Phosphatase 79, Total Protein 7.9, Albumin 2.8L, Globulin 5.1, Albumin/Globulin Ratio 0.5L Height (Feet): 5 Height (Inches): 8.00 Weight (Pounds): 173 General Appearance: no apparent distress, lethargic EENT: PERRL/EOMI, normal ENT inspection, TMs normal, pharynx normal Neck: non-tender, normal alignment, supple, normal inspection Cardiovascular: normal peripheral pulses, normal rate, regular rhythm Respiratory/Chest: chest wall non-tender, lungs clear, normal breath sounds, no respiratory distress, no accessory muscle use Abdomen: normal bowel sounds, non tender, soft, no organomegaly, no mass Extremities: non-tender, normal inspection Neurologic: no motor/sensory deficits, unresponsive Skin: normal pigmentation, warm/dry Paul Rapp MD Jun 21, 2018 12:30
[2018-06-21 16:00] VITALS: BP 155/93
[2018-06-21 20:00] VITALS: BP 148/88
[2018-06-21] MEDS: Atorvastatin 20mg tab ORAL SCH (21:32)
[2018-06-22] VITALS: BP_SYST 132; BP_SYST 148; BP_DIAS 66; BP_DIAS 88
[2018-06-22] MEDS: LORazepam 1mg tab ORAL PRN ×2 (01:59→23:48)
[2018-06-22] MEDS: Albuterol/Ipratropium 3ml neb HHN SCH ×4 (03:26→14:55)
[2018-06-22 04:00] VITALS: BP 148/82
[2018-06-22] MEDS: Piperacillin/Tazobactam 3.375 GM in D5W 55 ML IV SCH ×3 (06:06→21:56)
--- NOTE | 2018-06-22 07:56 | Infectious Diseases Prog Note ---
Assessment/Plan Assessment/Plan The patient is an 88-year-old male with: Leukocytosis, improving Probable sepsis. Probable pneumonia 06/19 Chest x-ray : Increased right basilar infiltrate and atelectasis. New or increased left basilar atelectasis and pleural fluid, over 2 days -sp cx p Rule out probable bacteremia -Bcx NTD Flu screen : Neg Afebrile AFib Dementia Hypertension COPD Renal insufficiency Anemia PLAN: Continue the patient on IV vancomycin and Zosyn, day # 5 for PNA On D/C could switch to PO levofloxacin to finish a 7 day course ( End date 06/25/18) Monitor CBC Monitor BMP Subjective Allergies: Coded Allergies: IBUPROFEN (Verified Allergy, Unknown, 06/17/18) Subjective Satting well on room air Leukocytosis resolved Objective Vital Signs Last 24 Hour Vital Signs Date Time Temp Pulse Resp B/P (MAP) Pulse Ox O2 Delivery O2 Flow Rate FiO2 06/22/18 07:29 92 18 96 Room Air 21 06/22/18 07:22 87 20 97 Room Air 21 06/22/18 04:00 97.2 84 148/82 (104) 06/22/18 04:00 84 06/22/18 03:39 90 18 96 Room Air 21 06/22/18 03:28 86 20 94 Room Air 21 06/22/18 00:00 98.0 110 19 132/66 (88) 97 06/22/18 00:00 110 06/21/18 23:36 93 20 99 Room Air 21 06/21/18 23:21 85 18 96 Room Air 21 06/21/18 21:33 100 151/84 06/21/18 21:00 Room Air 06/21/18 20:00 98 06/21/18 20:00 97.2 98 20 148/88 (108) 97 06/21/18 19:26 88 20 97 Room Air 21 06/21/18 19:22 94 18 96 Room Air 21 06/21/18 16:48 94 20 100 Room Air 21 06/21/18 16:35 94 18 97 Room Air 21 06/21/18 16:00 97.9 87 18 155/93 (113) 94 06/21/18 16:00 88 06/21/18 12:16 88 20 99 Room Air 21 06/21/18 12:10 85 16 96 Room Air 21 06/21/18 12:00 97.9 74 18 124/62 (82) 96 06/21/18 12:00 94 06/21/18 09:00 Room Air 06/21/18 08:26 127 140/97 06/21/18 08:26 140/97 06/21/18 08:00 98.2 127 19 140/97 (111) 94 06/21/18 08:00 119 06/21/18 07:59 95 20 99 Room Air 21 Height (Feet): 5 Height (Inches): 8.00 Weight (Pounds): 170 Objective GEN: NAD, Satting well on RA HEENT: NCAT, MMM, EOMI LUNGS: CTAB, No W CARDS: RRR, S1, S2 Abd: Soft, NT, ND Microbiology Date/Time Source Procedure Growth Status 06/21/18 23:30 Sputum Induced Gram Stain - Final Resulted 06/21/18 23:30 Sputum Induced Sputum Culture Pending Resulted Current Medications Medications (Trade) Dose Ordered Sig/Leanna Route PRN Reason Start Time Stop Time Status Last Admin Dose Admin Albuterol/ Ipratropium (Albuterol/ Ipratropium) 3 ml Q4HRT HHN 06/17/18 19:00 06/22/18 18:59 06/22/18 07:22 Atorvastatin Calcium (Lipitor) 20 mg BEDTIME ORAL 06/17/18 21:00 07/17/18 20:59 06/21/18 21:32 Lorazepam (Ativan) 1 mg Q4H PRN ORAL For Anxiety 06/18/18 11:00 06/25/18 10:59 06/22/18 01:59 Losartan Potassium (Cozaar) 25 mg DAILY ORAL 06/18/18 09:00 07/18/18 08:59 06/21/18 08:26 Metoprolol Tartrate (Lopressor) 50 mg EVERY 12 HOURS ORAL 06/17/18 21:00 07/17/18 20:59 06/21/18 21:33 Montelukast Sodium (Singulair) 10 mg DAILY ORAL 06/18/18 09:00 07/18/18 08:59 06/21/18 08:24 Olanzapine (ZyPREXA) 5 mg THREE TIMES A DAY ORAL 06/19/18 13:00 07/19/18 12:59 06/21/18 17:18 Piperacillin Sod/ Tazobactam Sod 3.375 gm/Dextrose 55 ml @ 13.75 mls/ hr Q8HR IV 06/17/18 21:00 06/24/18 20:59 06/22/18 06:06 Rivaroxaban (Xarelto) 15 mg DAILY ORAL 06/18/18 09:00 07/18/18 08:59 06/21/18 08:24 Vancomycin HCl (Vanco rx to dose) 1 ea DAILY PRN MISC Vanco per Rx 06/17/18 20:15 07/17/18 18:29 Vancomycin/Sodium Chloride 250 ml @ 166.667 mls/hr Q48H IVPB 06/18/18 20:30 06/23/18 20:29 06/20/18 20:06 William Morales MD Jun 22, 2018 07:56
[2018-06-22 08:00] VITALS: BP 148/82
[2018-06-22] MEDS: Metoprolol Tartrate 50mg tab ORAL SCH ×2 (08:59→21:00)
[2018-06-22] MEDS: Montelukast 10mg tablet ORAL SCH (08:59)
[2018-06-22] MEDS: Xarelto 15mg tab ORAL SCH (08:59)
[2018-06-22] MEDS: Losartan 25mg tab ORAL SCH (09:00)
[2018-06-22 12:00] VITALS: BP 131/78
--- NOTE | 2018-06-22 13:54 | General Progress Note ---
Assessment/Plan Problem List: (1) Acute metabolic encephalopathy Assessment & Plan: due to sepsis/dementia appreciate psych evaluation .. cont fluids and abx cont hydration appreciate cards and ID recs tele monitor closely still altered, calm currently, trying to get a hold of family but unable to hospice consult unable to feed bc family refused NGT ICD Codes: G93.41 - Metabolic encephalopathy SNOMED: 91064971, 921413404 (2) Sepsis Assessment & Plan: unknown source, likely pneumonia wbc improved pending AM labs cont abx per ID recs vre rectal swab mrsa nares cont abx vanco zosyn ICD Codes: A41.9 - Sepsis, unspecified organism SNOMED: 63877031, 260621455 Qualifiers: Qualified Codes: A41.9 - Sepsis, unspecified organism (3) COPD exacerbation Assessment & Plan: breathing tx hold off steroids due to sepsis monitor tele ICD Codes: J44.1 - Chronic obstructive pulmonary disease with (acute) exacerbation SNOMED: 980548707 (4) Atrial fibrillation with RVR Assessment & Plan: resumed home anticoagulation cards consulted rate controlled now tele monitor ICD Codes: I48.91 - Unspecified atrial fibrillation SNOMED: 423580047290646 (5) NSTEMI (non-ST elevated myocardial infarction) Assessment & Plan: trop .033 TYPE II NSTEMI due to demand ischemia from sepsis/copd exacerbation TTE reviewed, EF 60-65% cards following, appreciate recs currently euvolemic ICD Codes: I21.4 - Non-ST elevation (NSTEMI) myocardial infarction SNOMED: 612134399 (6) Demand ischemia Assessment & Plan: due to sepsis and copd exacerbation management per above monitor cards following ICD Codes: I24.8 - Other forms of acute ischemic heart disease SNOMED: 282581184 (7) Hyperkalemia Assessment & Plan: stable ICD Codes: E87.5 - Hyperkalemia SNOMED: 93553730, 563486241 (8) TUTU (acute kidney injury) Assessment & Plan: off lasix off fluids cards following ICD Codes: N17.9 - Acute kidney failure, unspecified SNOMED: 61476552 Status: stable Assessment/Plan I have spent over 45 minutes regarding patient care and counseling and 39 minutes of face to face time with the patient Subjective Date patient seen: Jun 22, 2018 Time patient seen: 13:54 Allergies: Coded Allergies: IBUPROFEN (Verified Allergy, Unknown, 06/17/18) Subjective f/u altered mental status, sepsis due to pneumonia, nstemi type 2 psych, cards, ID following still not responsive to me, eyes closed, very somnolent agitation has been improving since psych has been following no acute events overnight currently stable on restraints need to get ahold of family and discuss GOC family refused NGT placement ROS: unable to obtain ROS due to current medical condition Objective Last 24 Hour Vital Signs Date Time Temp Pulse Resp B/P (MAP) Pulse Ox O2 Delivery O2 Flow Rate FiO2 06/22/18 12:00 98.3 75 19 131/78 (95) 94 06/22/18 11:04 94 18 97 Room Air 21 06/22/18 10:55 84 18 96 Room Air 21 06/22/18 09:00 148/82 06/22/18 09:00 Room Air 06/22/18 08:59 89 148/82 06/22/18 08:00 97.8 89 19 148/82 (104) 94 06/22/18 08:00 90 06/22/18 07:29 92 18 96 Room Air 21 06/22/18 07:22 87 20 97 Room Air 21 06/22/18 04:00 97.2 84 148/82 (104) 06/22/18 04:00 84 06/22/18 03:39 90 18 96 Room Air 21 06/22/18 03:28 86 20 94 Room Air 21 06/22/18 00:00 98.0 110 19 132/66 (88) 97 06/22/18 00:00 110 06/21/18 23:36 93 20 99 Room Air 21 06/21/18 23:21 85 18 96 Room Air 21 06/21/18 21:33 100 151/84 06/21/18 21:00 Room Air 06/21/18 20:00 98 06/21/18 20:00 97.2 98 20 148/88 (108) 97 06/21/18 19:26 88 20 97 Room Air 21 06/21/18 19:22 94 18 96 Room Air 21 06/21/18 16:48 94 20 100 Room Air 21 06/21/18 16:35 94 18 97 Room Air 21 06/21/18 16:00 97.9 87 18 155/93 (113) 94 06/21/18 16:00 88 Intake and Output 06/21/18 06/22/18 19:00 07:00 Intake Total 50 ml 27.50 ml Balance 50 ml 27.50 ml Intake Oral 50 ml IV Total 27.50 ml # Voids 4 3 Height (Feet): 5 Height (Inches): 8.00 Weight (Pounds): 170 General Appearance: no apparent distress, lethargic EENT: normal ENT inspection, TMs normal, pharynx normal Neck: non-tender, normal alignment, supple Cardiovascular: normal peripheral pulses, normal rate, regular rhythm Respiratory/Chest: chest wall non-tender, lungs clear, normal breath sounds, no respiratory distress, no accessory muscle use Abdomen: normal bowel sounds, non tender, soft, no organomegaly, no mass Extremities: normal range of motion, non-tender, normal inspection 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
[2018-06-22 15:14] LABS: BASOPHILS % (AUTO) 0.5 % (0.0-2.0); HEMOGLOBIN 12.4 G/DL (14.2-18.0); LYMPHOCYTES % (AUTO) 8.4 % (20.0-45.0); MEAN CORPUSCULAR VOLUME 98 FL (80-99); MONOCYTES % (AUTO) 10.4 % (1.0-10.0); NEUTROPHILS % (AUTO) 77.7 % (45.0-75.0); PLATELET COUNT 130 K/UL (150-450); RED BLOOD COUNT 3.78 M/UL (4.70-6.10); RED CELL DISTRIBUTION WIDTH 13.2 % (11.6-14.8); WHITE BLOOD COUNT 9.3 K/UL (4.8-10.8)
[2018-06-22 15:27] LABS: ANION GAP 10 mmol/L (5-15); BLOOD UREA NITROGEN 30 mg/dL (7-18); CARBON DIOXIDE 26 MMOL/L (21-32); CHLORIDE 113 MMOL/L (98-107); CREATININE 1.3 MG/DL (0.55-1.30); POTASSIUM 4.3 MMOL/L (3.5-5.1); SODIUM 149 MMOL/L (136-145)
[2018-06-22] MEDS ORDERED: NS 275ml ONE (15:55)
[2018-06-22] MEDS ORDERED: Tubing IV Secondary IV ONE (15:55)
[2018-06-22 16:00] VITALS: BP 129/79
[2018-06-22 20:00] VITALS: BP 155/82
[2018-06-22] MEDS: Atorvastatin 20mg tab ORAL SCH (20:59)
[2018-06-22] MEDS: Vancomycin 500mg/D5W 110ml IVPB SCH ×2 (20:59)
[2018-06-23] VITALS: BP 126/81
[2018-06-23 04:00] VITALS: BP 149/81
[2018-06-23] MEDS: Piperacillin/Tazobactam 3.375 GM in D5W 55 ML IV SCH ×3 (06:03→22:51)
[2018-06-23 08:00] VITALS: BP 160/94
[2018-06-23 08:05] LABS: BASOPHILS % (AUTO) 0.6 % (0.0-2.0); HEMATOCRIT 37.1 % (42.0-52.0); HEMOGLOBIN 12.5 G/DL (14.2-18.0); LYMPHOCYTES % (AUTO) 7.6 % (20.0-45.0); MEAN CORPUSCULAR VOLUME 96 FL (80-99); MONOCYTES % (AUTO) 8.4 % (1.0-10.0); NEUTROPHILS % (AUTO) 81.4 % (45.0-75.0); PLATELET COUNT 143 K/UL (150-450); RED BLOOD COUNT 3.85 M/UL (4.70-6.10); RED CELL DISTRIBUTION WIDTH 12.8 % (11.6-14.8)
[2018-06-23 08:16] LABS: ANION GAP 13 mmol/L (5-15); BLOOD UREA NITROGEN 25 mg/dL (7-18); CALCIUM 9.2 MG/DL (8.5-10.1); CARBON DIOXIDE 22 MMOL/L (21-32); CHLORIDE 114 MMOL/L (98-107); CREATININE 1.3 MG/DL (0.55-1.30); POTASSIUM 3.8 MMOL/L (3.5-5.1); SODIUM 149 MMOL/L (136-145)
[2018-06-23] MEDS: Metoprolol Tartrate 50mg tab ORAL SCH ×2 (09:24→21:31)
[2018-06-23] MEDS: Losartan 25mg tab ORAL SCH (09:25)
[2018-06-23] MEDS: Montelukast 10mg tablet ORAL SCH (09:25)
[2018-06-23] MEDS: Xarelto 15mg tab ORAL SCH (09:25)
--- NOTE | 2018-06-23 10:01 | General Progress Note ---
Assessment/Plan Problem List: (1) Acute metabolic encephalopathy Assessment & Plan: due to sepsis/dementia appreciate psych evaluation ..discussed with family, family would like to continue current care NGT feeding to start today cont fluids and abx cont hydration appreciate cards and ID recs tele monitor closely ICD Codes: G93.41 - Metabolic encephalopathy SNOMED: 46684897, 047069231 (2) Sepsis Assessment & Plan: unknown source, likely pneumonia wbc improved pending AM labs cont abx per ID recs vre rectal swab mrsa nares cont abx vanco zosyn ICD Codes: A41.9 - Sepsis, unspecified organism SNOMED: 55957464, 757683522 Qualifiers: Qualified Codes: A41.9 - Sepsis, unspecified organism (3) COPD exacerbation Assessment & Plan: breathing tx hold off steroids due to sepsis monitor tele ICD Codes: J44.1 - Chronic obstructive pulmonary disease with (acute) exacerbation SNOMED: 609973178 (4) Atrial fibrillation with RVR Assessment & Plan: resumed home anticoagulation cards consulted rate controlled now tele monitor ICD Codes: I48.91 - Unspecified atrial fibrillation SNOMED: 966592901786123 (5) NSTEMI (non-ST elevated myocardial infarction) Assessment & Plan: trop .033 TYPE II NSTEMI due to demand ischemia from sepsis/copd exacerbation TTE reviewed, EF 60-65% cards following, appreciate recs currently euvolemic ICD Codes: I21.4 - Non-ST elevation (NSTEMI) myocardial infarction SNOMED: 293240712 (6) Demand ischemia Assessment & Plan: due to sepsis and copd exacerbation management per above monitor cards following ICD Codes: I24.8 - Other forms of acute ischemic heart disease SNOMED: 967131415 (7) Hyperkalemia Assessment & Plan: stable ICD Codes: E87.5 - Hyperkalemia SNOMED: 99012646, 460927921 (8) TUTU (acute kidney injury) Assessment & Plan: off lasix off fluids cards following ICD Codes: N17.9 - Acute kidney failure, unspecified SNOMED: 18450153 Status: stable Assessment/Plan I have spent over 45 minutes regarding patient care and counseling and 39 minutes of face to face time with the patient Subjective Allergies: Coded Allergies: IBUPROFEN (Verified Allergy, Unknown, 06/17/18) Subjective f/u altered mental status, sepsis due to pneumonia, nstemi type 2 psych, cards, ID following still not responsive to me, eyes closed, very somnolent discussed case with patient's daughter and grandson, after disussion they are agreeable to starting NG tube feedings no acute events overnight currently stable on restraints ROS: unable to obtain ROS due to current medical condition Objective Last 24 Hour Vital Signs Date Time Temp Pulse Resp B/P (MAP) Pulse Ox O2 Delivery O2 Flow Rate FiO2 06/23/18 09:25 160/94 06/23/18 09:24 104 160/94 06/23/18 08:00 110 06/23/18 08:00 97.5 104 20 160/94 (116) 96 06/23/18 04:00 94 06/23/18 04:00 96.8 97 18 149/81 (103) 94 06/23/18 00:00 94 06/23/18 00:00 97.7 96 19 126/81 (96) 94 06/22/18 21:00 Room Air 06/22/18 21:00 95 129/79 06/22/18 20:03 95 18 Room Air 06/22/18 20:00 97.5 99 18 155/82 (106) 98 06/22/18 20:00 85 06/22/18 16:00 97.2 91 20 129/79 (96) 98 06/22/18 16:00 83 06/22/18 15:03 101 18 98 Room Air 21 06/22/18 14:55 100 18 100 Room Air 21 06/22/18 12:00 98.3 75 19 131/78 (95) 94 06/22/18 12:00 75 06/22/18 11:04 94 18 97 Room Air 21 06/22/18 10:55 84 18 96 Room Air 21 Intake and Output 06/22/18 06/23/18 19:00 07:00 Intake Total 100 ml Balance 100 ml Intake Oral 100 ml # Voids 4 2 Laboratory Tests 06/22/18 14:48: White Blood Count 9.3, Red Blood Count 3.78L, Hemoglobin 12.4L, Hematocrit 37.0L , Mean Corpuscular Volume 98, Mean Corpuscular Hemoglobin 32.9H, Mean Corpuscular Hemoglobin Concent 33.7, Red Cell Distribution Width 13.2, Platelet Count 130L, Mean Platelet Volume 6.3L, Neutrophils (%) (Auto) 77.7H, Lymphocytes (%) (Auto) 8.4L, Monocytes (%) (Auto) 10.4H, Eosinophils (%) (Auto) 3.0, Basophils (%) (Auto) 0.5, Sodium Level 149H, Potassium Level 4.3, Chloride Level 113H, Carbon Dioxide Level 26, Anion Gap 10, Blood Urea Nitrogen 30H, Creatinine 1.3, Estimat Glomerular Filtration Rate , Glucose Level 88, Calcium Level 9.0 06/22/18 19:30: Vancomycin Level Trough 6.3 06/23/18 07:40: White Blood Count 12.0H, Red Blood Count 3.85L, Hemoglobin 12.5L, Hematocrit 37.1L, Mean Corpuscular Volume 96, Mean Corpuscular Hemoglobin 32.4H, Mean Corpuscular Hemoglobin Concent 33.7, Red Cell Distribution Width 12.8, Platelet Count 143L, Mean Platelet Volume 6.2L, Neutrophils (%) (Auto) 81.4H, Lymphocytes (%) (Auto) 7.6L, Monocytes (%) (Auto) 8.4, Eosinophils (%) (Auto) 2.0, Basophils (%) (Auto) 0.6, Sodium Level 149H, Potassium Level 3.8, Chloride Level 114H, Carbon Dioxide Level 22, Anion Gap 13, Blood Urea Nitrogen 25H, Creatinine 1.3, Estimat Glomerular Filtration Rate , Glucose Level 77, Calcium Level 9.2 Height (Feet): 5 Height (Inches): 8.00 Weight (Pounds): 174 General Appearance: no apparent distress EENT: normal ENT inspection, TMs normal, pharynx normal Neck: non-tender, normal alignment, supple Cardiovascular: normal peripheral pulses, normal rate, regular rhythm Respiratory/Chest: chest wall non-tender, lungs clear, normal breath sounds, no respiratory distress Abdomen: normal bowel sounds, non tender, soft, no organomegaly, no mass Extremities: normal range of motion, non-tender, normal inspection Neurologic: unresponsive Skin: normal pigmentation, warm/dry Paul Rapp MD Jun 23, 2018 10:01
[2018-06-23] MEDS ORDERED: Tubing IV Secondary IV ONE (10:22)
[2018-06-23 12:00] VITALS: BP 152/95
[2018-06-23] MEDS ORDERED: NS 275ml ONE (15:20)
[2018-06-23 16:00] VITALS: BP 155/83
[2018-06-23 20:00] VITALS: BP 157/81
[2018-06-23] MEDS: Albuterol/Ipratropium 3ml neb HHN PRN (20:43)
--- NOTE | 2018-06-23 21:18 | Cardiology Progress Note ---
Assessment/Plan Status: stable Assessment/Plan Assessment/Plan Dementia Sepsis/elevated lactate/elevated WBC COPD AFIB TUTU Elevated Troponin -Empiric Abx -Cultures -IV fluids, trend lactate -Pulmonary toilet -Stress dose steroids if not better -Continue rate control, no indication for cardioversion -Defer cardiac cath -Trend troponin -Continue anticoagulation -Echocardiogram to evaluate LV function given elevated BNP --> normal LV function, no indication for diuresis at this time -Psych to manage agitation -Arterial doppler LE pending Subjective Cardiovascular: Reports: no symptoms Respiratory: Reports: no symptoms Gastrointestinal/Abdominal: Reports: no symptoms Genitourinary: Reports: no symptoms Subjective Patient remained agitated throughout the day, no acute events, WBC improved, troponin mildly elevated, 0.6, Echo LVEF 60% with no wall motion abnormalities Objective Last 24 Hour Vital Signs Date Time Temp Pulse Resp B/P (MAP) Pulse Ox O2 Delivery O2 Flow Rate FiO2 06/23/18 20:51 91 20 99 Room Air 21 06/23/18 20:43 94 20 93 Room Air 21 06/23/18 16:00 78 06/23/18 16:00 97.2 88 21 155/83 (107) 95 06/23/18 12:00 97.3 92 21 152/95 (114) 99 06/23/18 12:00 79 06/23/18 09:25 160/94 06/23/18 09:24 104 160/94 06/23/18 09:00 Room Air 06/23/18 08:00 110 06/23/18 08:00 97.5 104 20 160/94 (116) 96 06/23/18 04:00 94 06/23/18 04:00 96.8 97 18 149/81 (103) 94 06/23/18 00:00 94 06/23/18 00:00 97.7 96 19 126/81 (96) 94 General Appearance: no apparent distress, lethargic EENT: PERRL/EOMI, normal ENT inspection Neck: non-tender, normal alignment, supple, normal inspection, no JVD Rhythm: NSR Cardiovascular: normal peripheral pulses, normal rate, regular rhythm, no gallop/murmur Respiratory/Chest: chest wall non-tender, lungs clear, normal breath sounds, no accessory muscle use Abdomen: normal bowel sounds, non tender, soft, no organomegaly, no mass Extremities: normal range of motion, non-tender, normal inspection, no calf tenderness, no swelling Pulses: decreased: PT (L), PT (R), DP (L), DP (R) 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5-10.1) L Neutrophils (%) (Auto) 81.4 % (45.0-75.0) H Lymphocytes (%) (Auto) 7.6 % (20.0-45.0) L Monocytes (%) (Auto) 8.4 % (1.0-10.0) Eosinophils (%) (Auto) 2.0 % (0.0-3.0) Basophils (%) (Auto) 0.6 % (0.0-2.0) Sodium Level 149 MMOL/L (136-145) H Potassium Level 3.8 MMOL/L (3.5-5.1) Chloride Level 114 MMOL/L (98-107) H Carbon Dioxide Level 22 MMOL/L (21-32) Anion Gap 13 mmol/L (5-15) Blood Urea Nitrogen 25 mg/dL (7-18) H Creatinine 1.3 MG/DL (0.55-1.30) Estimat Glomerular Filtration Rate mL/min (>60) Glucose Level 77 MG/DL (74-106) Calcium Level 9.2 MG/DL (8.5-10.1) Microbiology Date/Time Source Procedure Growth Status 06/21/18 23:30 Sputum Induced Gram Stain - Final Resulted 06/21/18 23:30 Sputum Culture - Preliminary Yeast Species Resulted William Cruz MD Jun 23, 2018 21:18
[2018-06-23] MEDS: Vancomycin 500mg/D5W 110ml IVPB SCH ×2 (21:29)
[2018-06-23] MEDS: Atorvastatin 20mg tab ORAL SCH (21:29)
[2018-06-24] VITALS (7 sets, daily range): BP systolic 130–155; BP diastolic 61–106
[2018-06-24] MEDS: Piperacillin/Tazobactam 3.375 GM in D5W 55 ML IV SCH ×2 (06:22→13:31)
[2018-06-24] MEDS: Losartan 25mg tab ORAL SCH (08:53)
[2018-06-24] MEDS: Metoprolol Tartrate 50mg tab ORAL SCH ×2 (08:53→21:30)
[2018-06-24] MEDS: Montelukast 10mg tablet ORAL SCH (08:53)
[2018-06-24] MEDS: Xarelto 15mg tab ORAL SCH (08:53)
--- NOTE | 2018-06-24 10:14 | General Progress Note ---
Assessment/Plan Problem List: (1) Acute metabolic encephalopathy Assessment & Plan: due to sepsis/dementia appreciate psych evaluation ..discussed with family, family would like to continue current care family refusing NGT, no sedative cont fluids and abx cont hydration appreciate cards and ID recs tele monitor closely mri brain pending barium swallow study per ST ICD Codes: G93.41 - Metabolic encephalopathy SNOMED: 28739913, 003393783 (2) Sepsis Assessment & Plan: unknown source, likely pneumonia wbc improved pending AM labs cont abx per ID recs vre rectal swab mrsa nares cont abx vanco zosyn ICD Codes: A41.9 - Sepsis, unspecified organism SNOMED: 77389066, 603613761 Qualifiers: Qualified Codes: A41.9 - Sepsis, unspecified organism (3) COPD exacerbation Assessment & Plan: breathing tx hold off steroids due to sepsis monitor tele ICD Codes: J44.1 - Chronic obstructive pulmonary disease with (acute) exacerbation SNOMED: 800171906 (4) Atrial fibrillation with RVR Assessment & Plan: resumed home anticoagulation cards consulted rate controlled now tele monitor ICD Codes: I48.91 - Unspecified atrial fibrillation SNOMED: 614536962590690 (5) NSTEMI (non-ST elevated myocardial infarction) Assessment & Plan: trop .033 TYPE II NSTEMI due to demand ischemia from sepsis/copd exacerbation TTE reviewed, EF 60-65% cards following, appreciate recs currently euvolemic ICD Codes: I21.4 - Non-ST elevation (NSTEMI) myocardial infarction SNOMED: 022903878 (6) Demand ischemia Assessment & Plan: due to sepsis and copd exacerbation management per above monitor cards following ICD Codes: I24.8 - Other forms of acute ischemic heart disease SNOMED: 567028448 (7) Hyperkalemia Assessment & Plan: stable ICD Codes: E87.5 - Hyperkalemia SNOMED: 50002310, 961965741 (8) TUTU (acute kidney injury) Assessment & Plan: off lasix off fluids cards following ICD Codes: N17.9 - Acute kidney failure, unspecified SNOMED: 02346138 Status: stable Assessment/Plan I have spent over 42 minutes regarding patient care and counseling and 39 minutes of face to face time with the patient Subjective Allergies: Coded Allergies: IBUPROFEN (Verified Allergy, Unknown, 06/17/18) Subjective f/u altered mental status, sepsis due to pneumonia, nstemi type 2 psych, cards, ID following opens eyes to sternal rub family refusing any sedatives for patient, no ativan patient still unresponsive otherwise. family refused NGT feeding yesterday, family feeding him pureed light soup, nectar thick no acute events overnight currently stable on restraints ROS: unable to obtain ROS due to current medical condition Objective Last 24 Hour Vital Signs Date Time Temp Pulse Resp B/P (MAP) Pulse Ox O2 Delivery O2 Flow Rate FiO2 06/24/18 09:48 96 20 98 Room Air 21 06/24/18 09:46 94 20 94 Room Air 21 06/24/18 08:53 105 144/83 06/24/18 08:53 144/83 06/24/18 08:00 98.0 105 20 144/83 (103) 95 06/24/18 04:00 97.7 102 20 138/74 (95) 95 06/24/18 04:00 95 06/24/18 00:00 97.2 89 18 155/75 (101) 97 06/24/18 00:00 89 06/23/18 21:31 101 141/81 06/23/18 21:00 Room Air 06/23/18 20:51 91 20 99 Room Air 21 06/23/18 20:43 94 20 93 Room Air 21 06/23/18 20:00 85 06/23/18 20:00 97.0 85 18 157/81 (106) 95 06/23/18 16:00 78 06/23/18 16:00 97.2 88 21 155/83 (107) 95 06/23/18 12:00 97.3 92 21 152/95 (114) 99 06/23/18 12:00 79 Intake and Output 06/23/18 06/24/18 19:00 07:00 # Voids 4 2 Height (Feet): 5 Height (Inches): 8.00 Weight (Pounds): 169 General Appearance: no apparent distress, lethargic EENT: normal ENT inspection, TMs normal, pharynx normal Neck: non-tender, normal alignment, supple, normal inspection Cardiovascular: normal peripheral pulses, normal rate, regular rhythm Respiratory/Chest: chest wall non-tender, lungs clear, normal breath sounds, no respiratory distress, no accessory muscle use Abdomen: normal bowel sounds, non tender, soft, no organomegaly, no mass Extremities: normal range of motion, non-tender, normal inspection 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
[2018-06-24] MEDS ORDERED: Sennosides 8.6mg tab ORAL PRN (10:30)
--- NOTE | 2018-06-24 11:23 | Diagnostic Imaging Report ---
Indication: Shortness of breath Technique: One view of the chest Comparison: 06/19/2018 Findings: Bilateral basilar opacities persist but have decreased, likely reflecting residual pleural fluid and atelectasis generalized interstitial congestion has likewise improved. Cardiomegaly persists. Severe degenerative changes of both shoulders are again demonstrated Impression: Improved interstitial congestion, over 5 days Improved but persistent bilateral basilar atelectasis and possibly small pleural effusions
--- NOTE | 2018-06-24 11:51 | General Progress Note ---
Assessment/Plan Problem List: (1) Acute metabolic encephalopathy ICD Codes: G93.41 - Metabolic encephalopathy SNOMED: 21085363, 851489281 Status: unchanged Assessment/Plan Zyprexa 5 mg tid Ativan prn for break through agitation cont restraints. Subjective Neurologic/Psychiatric: Reports: anxiety, depressed, emotional problems Allergies: Coded Allergies: IBUPROFEN (Verified Allergy, Unknown, 06/17/18) Objective Last 24 Hour Vital Signs Date Time Temp Pulse Resp B/P (MAP) Pulse Ox O2 Delivery O2 Flow Rate FiO2 06/24/18 09:48 96 20 98 Room Air 21 06/24/18 09:46 94 20 94 Room Air 21 06/24/18 09:00 Room Air 06/24/18 08:53 105 144/83 06/24/18 08:53 144/83 06/24/18 08:00 98.0 105 20 144/83 (103) 95 06/24/18 04:00 97.7 102 20 138/74 (95) 95 06/24/18 04:00 95 06/24/18 00:00 97.2 89 18 155/75 (101) 97 06/24/18 00:00 89 06/23/18 21:31 101 141/81 06/23/18 21:00 Room Air 06/23/18 20:51 91 20 99 Room Air 21 06/23/18 20:43 94 20 93 Room Air 21 06/23/18 20:00 85 06/23/18 20:00 97.0 85 18 157/81 (106) 95 06/23/18 16:00 78 06/23/18 16:00 97.2 88 21 155/83 (107) 95 06/23/18 12:00 97.3 92 21 152/95 (114) 99 06/23/18 12:00 79 Intake and Output 06/23/18 06/24/18 19:00 07:00 # Voids 4 2 Height (Feet): 5 Height (Inches): 8.00 Weight (Pounds): 169 General Appearance: lethargic, confused, agitated Massiel Blanco MD Jun 24, 2018 11:51
[2018-06-24] MEDS: Albuterol/Ipratropium 3ml neb HHN PRN ×2 (13:38→19:41)
--- NOTE | 2018-06-24 17:06 | Infectious Diseases Prog Note ---
Assessment/Plan Assessment/Plan The patient is an 88-year-old male with: Leukocytosis, recurrent mild Probable sepsis. Probable pneumonia 06/24 CXR: Improved interstitial congestion, over 5 days. Improved but persistent bilateral basilar atelectasis and possibly small pleural effusions 06/19 Chest x-ray : Increased right basilar infiltrate and atelectasis. New or increased left basilar atelectasis and pleural fluid, over 2 days -sp cx S. aureus (sensi pending), yeast (colonizer) Rule out probable bacteremia -Bcx NTD Flu screen : Neg Afebrile AFib Dementia Hypertension COPD Renal insufficiency Anemia PLAN: Continue the patient on IV vancomycin #7/7-10 for S. aureus PNA D/c Zosyn day # 7 Monitor CBC Monitor BMP Aspiration precautions Subjective Allergies: Coded Allergies: IBUPROFEN (Verified Allergy, Unknown, 06/17/18) Subjective afebrile at RA mild leukocytosis Objective Vital Signs Last 24 Hour Vital Signs Date Time Temp Pulse Resp B/P (MAP) Pulse Ox O2 Delivery O2 Flow Rate FiO2 06/24/18 16:00 97.9 87 20 134/74 (94) 91 06/24/18 14:04 99 18 97 Room Air 21 06/24/18 13:44 92 16 92 Room Air 21 06/24/18 12:00 80 06/24/18 12:00 98.1 87 20 149/106 (120) 95 06/24/18 09:48 96 20 98 Room Air 21 06/24/18 09:46 94 20 94 Room Air 21 06/24/18 09:00 Room Air 06/24/18 08:53 105 144/83 06/24/18 08:53 144/83 06/24/18 08:00 98 06/24/18 08:00 98.0 105 20 144/83 (103) 95 06/24/18 04:00 97.7 102 20 138/74 (95) 95 06/24/18 04:00 95 06/24/18 00:00 97.2 89 18 155/75 (101) 97 06/24/18 00:00 89 06/23/18 21:31 101 141/81 06/23/18 21:00 Room Air 06/23/18 20:51 91 20 99 Room Air 21 06/23/18 20:43 94 20 93 Room Air 21 06/23/18 20:00 85 06/23/18 20:00 97.0 85 18 157/81 (106) 95 Height (Feet): 5 Height (Inches): 8.00 Weight (Pounds): 169 Microbiology Date/Time Source Procedure Growth Status 06/21/18 23:30 Sputum Induced Gram Stain - Final Resulted 06/21/18 23:30 Sputum Culture - Preliminary Yeast Species Staphylococcus Aureus Resulted Current Medications Medications (Trade) Dose Ordered Sig/Leanna Route PRN Reason Start Time Stop Time Status Last Admin Dose Admin Acetylcysteine (Mucomyst) 100 mg TIDRT HHN 06/23/18 19:00 07/23/18 18:59 06/24/18 01:35 Albuterol/ Ipratropium (Albuterol/ Ipratropium) 3 ml Q4H PRN HHN Shortness of Breath 06/23/18 17:15 06/28/18 17:14 06/24/18 13:38 Atorvastatin Calcium (Lipitor) 20 mg BEDTIME ORAL 06/17/18 21:00 07/17/18 20:59 06/23/18 21:29 Bisacodyl (Dulcolax) 10 mg DAILYPRN PRN RECTAL Constipation 06/24/18 10:30 07/24/18 10:14 Lorazepam (Ativan 2mg/ml 1ml) 1 mg ONCE PRN IV PRIOR TO MRI 06/25/18 10:00 06/26/18 23:59 Losartan Potassium (Cozaar) 25 mg DAILY ORAL 06/18/18 09:00 07/18/18 08:59 06/24/18 08:53 Metoprolol Tartrate (Lopressor) 50 mg EVERY 12 HOURS ORAL 06/17/18 21:00 07/17/18 20:59 06/24/18 08:53 Montelukast Sodium (Singulair) 10 mg DAILY ORAL 06/18/18 09:00 07/18/18 08:59 06/24/18 08:53 Olanzapine (ZyPREXA) 5 mg THREE TIMES A DAY ORAL 06/19/18 13:00 07/19/18 12:59 06/24/18 12:30 Piperacillin Sod/ Tazobactam Sod 3.375 gm/Dextrose 55 ml @ 13.75 mls/ hr Q8HR IV 06/17/18 21:00 06/25/18 20:59 06/24/18 13:31 Rivaroxaban (Xarelto) 15 mg DAILY ORAL 06/18/18 09:00 07/18/18 08:59 06/24/18 08:53 Sennosides (Senokot) 8.6 mg DAILY PRN ORAL Constipation 06/24/18 10:30 07/24/18 10:29 Vancomycin HCl (Vanco rx to dose) 1 ea DAILY PRN MISC Vanco per Rx 06/17/18 20:15 07/17/18 18:29 Vancomycin HCl 500 mg/Dextrose 110 ml @ 110 mls/hr Q24H IVPB 06/22/18 21:00 06/27/18 20:59 06/23/18 21:29 Safia Irizarry M.D. Jun 24, 2018 17:06
[2018-06-24] MEDS: Atorvastatin 20mg tab ORAL SCH (21:31)
[2018-06-24] MEDS: Vancomycin 750mg/NS 250ml IVPB SCH (21:31)
[2018-06-25 04:00] VITALS: BP 149/93
[2018-06-25] MEDS: Albuterol/Ipratropium 3ml neb HHN PRN ×3 (07:56→19:14)
[2018-06-25 08:00] VITALS: BP 155/77
[2018-06-25 08:11] LABS: BASOPHILS % (AUTO) 0.5 % (0.0-2.0); EOSINOPHILS % (AUTO) 2.1 % (0.0-3.0); HEMATOCRIT 39.7 % (42.0-52.0); HEMOGLOBIN 13.2 G/DL (14.2-18.0); LYMPHOCYTES % (AUTO) 8.5 % (20.0-45.0); MEAN CORPUSCULAR VOLUME 98 FL (80-99); MONOCYTES % (AUTO) 7.3 % (1.0-10.0); NEUTROPHILS % (AUTO) 81.6 % (45.0-75.0); PLATELET COUNT 166 K/UL (150-450); RED BLOOD COUNT 4.05 M/UL (4.70-6.10); RED CELL DISTRIBUTION WIDTH 13.4 % (11.6-14.8); WHITE BLOOD COUNT 11.5 K/UL (4.8-10.8)
[2018-06-25 08:23] LABS: ANION GAP 11 mmol/L (5-15); BLOOD UREA NITROGEN 18 mg/dL (7-18); CARBON DIOXIDE 26 MMOL/L (21-32); CHLORIDE 114 MMOL/L (98-107); CREATININE 1.3 MG/DL (0.55-1.30); POTASSIUM 3.6 MMOL/L (3.5-5.1); SODIUM 151 MMOL/L (136-145)
[2018-06-25] MEDS ORDERED: LORazepam Inj 2mg/ml 1ml IV PRN ×2 (08:30→10:00)
[2018-06-25] MEDS ORDERED: Metoprolol 25mg tab ONE (09:08)
[2018-06-25] MEDS: Losartan 25mg tab ORAL SCH (09:16)
--- NOTE | 2018-06-25 09:16 | General Progress Note ---
Assessment/Plan Problem List: (1) Acute metabolic encephalopathy Assessment & Plan: due to sepsis/dementia appreciate psych evaluation ..discussed with family, family would like to continue current care family refusing NGT, no sedative cont fluids and abx cont hydration appreciate cards and ID recs tele monitor closely mri brain pending, planned for today barium swallow study per ST planned for today ICD Codes: G93.41 - Metabolic encephalopathy SNOMED: 90088954, 276790329 (2) Sepsis Assessment & Plan: unknown source, likely pneumonia wbc improved pending AM labs cont abx per ID recs vre rectal swab mrsa nares cont abx vanco zosyn ICD Codes: A41.9 - Sepsis, unspecified organism SNOMED: 97228667, 059948896 Qualifiers: Qualified Codes: A41.9 - Sepsis, unspecified organism (3) COPD exacerbation Assessment & Plan: breathing tx hold off steroids due to sepsis monitor tele ICD Codes: J44.1 - Chronic obstructive pulmonary disease with (acute) exacerbation SNOMED: 677589677 (4) Atrial fibrillation with RVR Assessment & Plan: resumed home anticoagulation cards consulted rate controlled now tele monitor ICD Codes: I48.91 - Unspecified atrial fibrillation SNOMED: 050295418131046 (5) NSTEMI (non-ST elevated myocardial infarction) Assessment & Plan: trop .033 TYPE II NSTEMI due to demand ischemia from sepsis/copd exacerbation TTE reviewed, EF 60-65% cards following, appreciate recs currently euvolemic ICD Codes: I21.4 - Non-ST elevation (NSTEMI) myocardial infarction SNOMED: 010688766 (6) Demand ischemia Assessment & Plan: due to sepsis and copd exacerbation management per above monitor cards following ICD Codes: I24.8 - Other forms of acute ischemic heart disease SNOMED: 426441062 (7) Hyperkalemia Assessment & Plan: stable ICD Codes: E87.5 - Hyperkalemia SNOMED: 75518648, 780364383 (8) TUTU (acute kidney injury) Assessment & Plan: off lasix off fluids cards following ICD Codes: N17.9 - Acute kidney failure, unspecified SNOMED: 18697188 (9) Esophageal thickening Assessment & Plan: per imaging gi consulted ICD Codes: K22.8 - Other specified diseases of esophagus SNOMED: 77696767 Status: stable Assessment/Plan I have spent over 42 minutes regarding patient care and counseling and 39 minutes of face to face time with the patient Subjective Allergies: Coded Allergies: IBUPROFEN (Verified Allergy, Unknown, 06/17/18) Subjective f/u altered mental status, sepsis due to pneumonia, nstemi type 2 psych, cards, ID following opens eyes to sternal rub family refusing any sedatives for patient, no ativan patient still unresponsive otherwise. family refused NGT feeding, family feeding him pureed light soup, nectar thick, barrium swallow per speech no acute events overnight currently stable on restraints ROS: unable to obtain ROS due to current medical condition Objective Last 24 Hour Vital Signs Date Time Temp Pulse Resp B/P (MAP) Pulse Ox O2 Delivery O2 Flow Rate FiO2 06/25/18 08:01 105 20 95 Room Air 21 06/25/18 07:58 106 22 93 Room Air 21 06/25/18 04:00 98.2 100 20 149/93 (111) 99 06/25/18 04:00 96 06/25/18 00:00 94 06/24/18 23:56 97.8 104 18 134/61 (85) 94 06/24/18 21:30 101 130/66 06/24/18 21:00 Room Air 06/24/18 20:00 97.8 101 20 130/66 (87) 91 06/24/18 20:00 102 06/24/18 19:51 108 18 98 Room Air 21 06/24/18 19:45 101 20 91 Room Air 21 06/24/18 16:00 97.9 87 20 134/74 (94) 91 06/24/18 16:00 97 06/24/18 14:04 99 18 97 Room Air 21 06/24/18 13:44 92 16 92 Room Air 21 06/24/18 12:00 80 06/24/18 12:00 98.1 87 20 149/106 (120) 95 06/24/18 09:48 96 20 98 Room Air 21 06/24/18 09:46 94 20 94 Room Air 21 Intake and Output 06/24/18 06/25/18 19:00 07:00 Intake Total 960 ml 240 ml Balance 960 ml 240 ml Intake Oral 960 ml 240 ml # Voids 4 4 Laboratory Tests 06/24/18 19:47: Vancomycin Level Trough 9.4 06/25/18 07:30: White Blood Count 11.5H, Red Blood Count 4.05L, Hemoglobin 13.2L, Hematocrit 39.7L, Mean Corpuscular Volume 98, Mean Corpuscular Hemoglobin 32.6H, Mean Corpuscular Hemoglobin Concent 33.3, Red Cell Distribution Width 13.4, Platelet Count 166, Mean Platelet Volume 5.8L, Neutrophils (%) (Auto) 81.6H, Lymphocytes (%) (Auto) 8.5L, Monocytes (%) (Auto) 7.3, Eosinophils (%) (Auto) 2.1, Basophils (%) (Auto) 0.5, Sodium Level 151H, Potassium Level 3.6, Chloride Level 114H, Carbon Dioxide Level 26, Anion Gap 11, Blood Urea Nitrogen 18, Creatinine 1.3, Estimat Glomerular Filtration Rate , Glucose Level 92, Calcium Level 10.0 Height (Feet): 5 Height (Inches): 8.00 Weight (Pounds): 171 General Appearance: no apparent distress, lethargic EENT: PERRL/EOMI, normal ENT inspection, TMs normal, pharynx normal Neck: non-tender, normal alignment, supple Cardiovascular: normal peripheral pulses, normal rate, regular rhythm Respiratory/Chest: chest wall non-tender, lungs clear, normal breath sounds, no respiratory distress, no accessory muscle use Abdomen: normal bowel sounds, non tender, soft, no organomegaly, no mass Extremities: normal range of motion, non-tender, normal inspection Neurologic: unresponsive Paul Rapp MD Jun 25, 2018 09:16
[2018-06-25] MEDS: Montelukast 10mg tablet ORAL SCH (09:20)
[2018-06-25] MEDS: Xarelto 15mg tab ORAL SCH (09:20)
[2018-06-25] MEDS: Metoprolol Tartrate 50mg tab ORAL SCH ×2 (09:20→20:20)
[2018-06-25] MEDS ORDERED: LORazepam 1mg tab ORAL PRN (11:45)
[2018-06-25 12:00] VITALS: BP 127/97
--- NOTE | 2018-06-25 12:05 | Infectious Diseases Prog Note ---
Assessment/Plan Assessment/Plan The patient is an 88-year-old male with: Leukocytosis, recurrent mild, improving Probable sepsis, resolving Probable pneumonia 06/24 CXR: Improved interstitial congestion, over 5 days. Improved but persistent bilateral basilar atelectasis and possibly small pleural effusions 06/19 Chest x-ray : Increased right basilar infiltrate and atelectasis. New or increased left basilar atelectasis and pleural fluid, over 2 days -sp cx S. MRSA (S tetracycline, bactrim, vanco), C. tropicalis (colonizer) Rule out probable bacteremia -Bcx NTD Flu screen : Neg Afebrile AFib Dementia Hypertension COPD Renal insufficiency Anemia PLAN: Continue the patient on IV vancomycin #8/7-10 for MRSA PNA 06/24 Zosyn day # 7 Monitor CBC Monitor BMP Aspiration precautions Subjective Allergies: Coded Allergies: IBUPROFEN (Verified Allergy, Unknown, 06/17/18) Subjective afebrile at RA mild leukocytosis, improving Objective Vital Signs Last 24 Hour Vital Signs Date Time Temp Pulse Resp B/P (MAP) Pulse Ox O2 Delivery O2 Flow Rate FiO2 06/25/18 09:20 106 155/77 06/25/18 09:16 155/77 06/25/18 09:00 Room Air 06/25/18 08:01 105 20 95 Room Air 06/25/18 08:00 104 06/25/18 08:00 98.2 106 20 155/77 (103) 94 06/25/18 07:58 106 22 93 Room Air 21 06/25/18 04:00 98.2 100 20 149/93 (111) 99 06/25/18 04:00 96 06/25/18 00:00 94 06/24/18 23:56 97.8 104 18 134/61 (85) 94 06/24/18 21:30 101 130/66 06/24/18 21:00 Room Air 06/24/18 20:00 97.8 101 20 130/66 (87) 91 06/24/18 20:00 102 06/24/18 19:51 108 18 98 Room Air 21 06/24/18 19:45 101 20 91 Room Air 21 06/24/18 16:00 97.9 87 20 134/74 (94) 91 06/24/18 16:00 97 06/24/18 14:04 99 18 97 Room Air 21 06/24/18 13:44 92 16 92 Room Air 21 06/24/18 12:00 80 06/24/18 12:00 98.1 87 20 149/106 (120) 95 Height (Feet): 5 Height (Inches): 8.00 Weight (Pounds): 171 Objective General Appearance: no apparent distress EENT: PERRL/EOMI, normal ENT inspection, TMs normal, pharynx normal Neck: non-tender, normal alignment, supple Cardiovascular: normal peripheral pulses, normal rate, regular rhythm Respiratory/Chest: chest wall non-tender, lungs clear, normal breath sounds, no respiratory distress, no accessory muscle use Abdomen: normal bowel sounds, non tender, soft, no organomegaly, no mass Extremities: normal range of motion, non-tender, normal inspection Laboratory Tests Test 06/24/18 19:47 06/25/18 07:30 Vancomycin Level Trough 9.4 ug/mL (5.0-12.0) White Blood Count 11.5 K/UL (4.8-10.8) H Red Blood Count 4.05 M/UL (4.70-6.10) L Hemoglobin 13.2 G/DL (14.2-18.0) L Hematocrit 39.7 % (42.0-52.0) L Mean Corpuscular Volume 98 FL (80-99) Mean Corpuscular Hemoglobin 32.6 PG (27.0-31.0) H Mean Corpuscular Hemoglobin Concent 33.3 G/DL (32.0-36.0) Red Cell Distribution Width 13.4 % (11.6-14.8) Platelet Count 166 K/UL (150-450) Mean Platelet Volume 5.8 FL (6.5-10.1) L Neutrophils (%) (Auto) 81.6 % (45.0-75.0) H Lymphocytes (%) (Auto) 8.5 % (20.0-45.0) L Monocytes (%) (Auto) 7.3 % (1.0-10.0) Eosinophils (%) (Auto) 2.1 % (0.0-3.0) Basophils (%) (Auto) 0.5 % (0.0-2.0) Sodium Level 151 MMOL/L (136-145) H Potassium Level 3.6 MMOL/L (3.5-5.1) Chloride Level 114 MMOL/L (98-107) H Carbon Dioxide Level 26 MMOL/L (21-32) Anion Gap 11 mmol/L (5-15) Blood Urea Nitrogen 18 mg/dL (7-18) Creatinine 1.3 MG/DL (0.55-1.30) Estimat Glomerular Filtration Rate mL/min (>60) Glucose Level 92 MG/DL (74-106) Calcium Level 10.0 MG/DL (8.5-10.1) Current Medications Medications (Trade) Dose Ordered Sig/Leanna Route PRN Reason Start Time Stop Time Status Last Admin Dose Admin Acetylcysteine (Mucomyst) 100 mg TIDRT HHN 06/23/18 19:00 07/23/18 18:59 06/25/18 07:56 Albuterol/ Ipratropium (Albuterol/ Ipratropium) 3 ml Q4H PRN HHN Shortness of Breath 06/23/18 17:15 06/28/18 17:14 06/25/18 07:56 Atorvastatin Calcium (Lipitor) 20 mg BEDTIME ORAL 06/17/18 21:00 07/17/18 20:59 06/24/18 21:31 Bisacodyl (Dulcolax) 10 mg DAILYPRN PRN RECTAL Constipation 06/24/18 10:30 07/24/18 10:14 Lorazepam (Ativan 2mg/ml 1ml) 1 mg ONCE PRN IV PRIOR TO MRI 06/25/18 08:30 06/25/18 23:59 06/25/18 08:30 Lorazepam (Ativan) 1 mg Q6H PRN ORAL For Anxiety 06/25/18 11:45 07/02/18 11:44 UNV Losartan Potassium (Cozaar) 25 mg DAILY ORAL 06/18/18 09:00 07/18/18 08:59 06/25/18 09:16 Metoprolol Tartrate (Lopressor) 50 mg EVERY 12 HOURS ORAL 06/17/18 21:00 07/17/18 20:59 06/25/18 09:20 Montelukast Sodium (Singulair) 10 mg DAILY ORAL 06/18/18 09:00 07/18/18 08:59 06/25/18 09:20 Olanzapine (ZyPREXA) 5 mg THREE TIMES A DAY ORAL 06/19/18 13:00 07/19/18 12:59 06/25/18 09:20 Rivaroxaban (Xarelto) 15 mg DAILY ORAL 06/18/18 09:00 07/18/18 08:59 06/25/18 09:20 Sennosides (Senokot) 8.6 mg DAILY PRN ORAL Constipation 06/24/18 10:30 07/24/18 10:29 06/24/18 18:53 Vancomycin HCl (Vanco rx to dose) 1 ea DAILY PRN MISC Vanco per Rx 06/17/18 20:15 07/17/18 18:29 Vancomycin/Sodium Chloride 250 ml @ 166.667 mls/hr Q24H IVPB 06/24/18 21:00 06/29/18 20:59 06/24/18 21:31 Safia Irizarry M.D. Jun 25, 2018 12:05
[2018-06-25 16:00] VITALS: BP 128/69
--- NOTE | 2018-06-25 16:08 | Diagnostic Imaging Report ---
Indication: Altered mental status Technique: sagittal T1 fast spin echo, axial T1 FLAIR, axial T2 FLAIR, axial T2 FS PROPELLER, axial T2* GRE, axial diffusion weighted images. ADC and exponential ADC maps generated Comparison: none Findings: Patient motion artifact limits evaluation of multiple sequences No definite abnormal areas of restricted diffusion to suggest acute infarction. No gross acute hemorrhage or edema. No mass effect nor midline shift. There is age-related enlargement of the ventricles and extra axial CSF spaces. There is periventricular deep white matter high T2 signal, consistent with chronic microvascular ischemic change. The vascular flow voids are grossly preserved. Impression: Limited exam, as described, due to motion artifact No gross acute intracranial bleed or mass effect or infarct Age-related volume loss and chronic periventricular deep white matter microvascular ischemic changes
--- NOTE | 2018-06-25 17:45 | Progress Note ---
DATE: 06/25/2018 SUBJECTIVE: The patient continues to have waxing and waning consciousness, not able to answer the questions still, getting agitated, pulling out IV access. The patient is on Zyprexa and Ativan as needed. The patient is unable to understand, provide any history. MENTAL STATUS EXAMINATION: The patient is confused. Mood is agitated. Affect is constricted. Congruent with mood. Thought process is concrete. Thought content, there is no suicidal or homicidal ideation. Cognition is impaired. ASSESSMENT: 1. Encephalopathy. 2. Agitation. The patient lacks capacity to make decisions. 3. Continue Zyprexa routine. 4. We will start the patient on Ativan p.r.n. Massiel Blanco M.D. DR: Troy JOB#: [id number] CC:
[2018-06-25 20:00] VITALS: BP 153/87
[2018-06-25] MEDS: Atorvastatin 20mg tab ORAL SCH (20:19)
[2018-06-25] MEDS: Vancomycin 750mg/NS 250ml IVPB SCH (22:13)
[2018-06-26] VITALS: BP 146/85
[2018-06-26 04:00] VITALS: BP 158/71
[2018-06-26] MEDS: Albuterol/Ipratropium 3ml neb HHN PRN (07:47)
[2018-06-26 08:00] VITALS: BP 163/88
--- NOTE | 2018-06-26 08:48 | Discharge Summary ---
Discharge Summary Hospital Course Date of Admission Jun 17, 2018 at 15:22 Date of Discharge Admitting Diagnosis COPD/pneumonia HPI Selvin Navarro is a 88 year old male who was admitted on Jun 17, 2018 at 15:22 for Chronic Obstructive Pulmonary Disease, Pneumonia Hospital Course 88 yo male with h/o copd, afib rvr, dementia presents from [facility] for concerns of shortness of breath and lethargy. Patient is currently somnolent however can be awoken by sternal rub. Patient at baseline has severe dementia and is not comprehendible. Patient has POLST that was brought with him by SNF, it was reviewed by myself along with nursing staff, patient is to remain FULL CODE. decision maker is Delphine Chaparro. Patient noted to be in respiratory distress requiring supplemental oxygen 2L ncl. He was also noted to be septic. patient from [facility] patient was treated for sepsis/Aspiration Pneumonia, ID was consulted, continued on zosyn and vanco throughout stay. Completed abx course also admitted with NSTEMI type 2 due to demand ischemia from sepsis/aspiration pna/copd exacerbation patient improved on increased breathing tx and resolution of pneumonia. patient was also agitated, due to sepsis. Patient has poor PO intake however family refusing NGT for patient. Family insists on feeding patient by mouth. Family also insists on refusing any sedatives for patient. patient is unable to make his own medical decision due to his advanced dementia MRI was also completed and reviewed. Limited exam, as described, due to motion artifact. No gross acute intracranial bleed or mass effect or infarct. Age- related volume loss and chronic periventricular deep white matter microvascular ischemic changes. patient to be [facility]'d back to [facility] with PT OT and ST evaluation Physical Exam: General Appearance: no apparent distress EENT: PERRL/EOMI, normal ENT inspection, TMs normal, pharynx normal Neck: non-tender, normal alignment, supple Cardiovascular: normal peripheral pulses, normal rate, regular rhythm Respiratory/Chest: chest wall non-tender, lungs clear, normal breath sounds, no respiratory distress, no accessory muscle use Abdomen: normal bowel sounds, non tender, soft, no organomegaly, no mass Extremities: normal range of motion, non-tender, normal inspection Neurologic: alert, not oriented at baseline. calm. I have spent over 40 minutes regarding patient care, counseling, and discharge disposition along with 27 minutes of face to face time with the patient Discharge Medications Continued Medications: Acetaminophen* (Acetaminophen 325MG Tablet*) 325 Mg Tablet 650 MG ORAL Q4H PRN for Fever/Headache/Mild Pain Atorvastatin Calcium* (Atorvastatin Calcium*) 20 Mg Tablet 20 MG ORAL BEDTIME, TAB Ferrous Sulfate* (Ferrous Sulfate*) 325 Mg Tablet 325 MG ORAL DAILY, #30 TAB 0 Refills Losartan Potassium* (Losartan Potassium*) 25 Mg Tablet 25 MG ORAL DAILY, TAB Hold for SBP < 110. Metoprolol Tartrate* (Metoprolol Tartrate*) 50 Mg Tablet 50 MG ORAL EVERY 12 HOURS, TAB 0 Refills Hold for SBP <110/HR < 60. Montelukast Sodium* (Montelukast Sodium*) 10 Mg Tablet 10 MG ORAL DAILY, TAB Rivaroxaban (Xarelto) 15 Mg Tablet 15 MG ORAL QHS Thiamine Hcl* (Vitamin B-1*) 100 Mg Tablet 100 MG ORAL DAILY Discontinued Medications: Furosemide* (Lasix*) 40 Mg Tablet 40 MG ORAL DAILY, TAB Hold if SBP <100. Potassium Chloride* (K-Dur*) 20 Meq Tab.er.prt 20 MEQ ORAL DAILY, #7 TAB 0 Refills Promethazine Hcl (Promethazine Hcl*) 6.25 Mg/5 Ml Syrup 5 ML ORAL Q6H PRN for For Cough Spironolactone* (Aldactone*) 25 Mg Tablet 25 MG ORAL DAILY Discharge Condition Upon Discharge: stable Discharge Disposition Patient was discharged to SNF/Subacute Facility(03) Discharge Diagnoses: (1) Failure to thrive (2) Protein-calorie malnutrition, moderate (3) agitation (4) Hyperkalemia (5) TUTU (acute kidney injury) (6) Sepsis (7) Demand ischemia (8) COPD exacerbation (9) NSTEMI (non-ST elevated myocardial infarction) (10) Atrial fibrillation with RVR (11) Renal insufficiency (12) Acute metabolic encephalopathy (13) Aspiration pneumonia Paul Rapp MD Jun 26, 2018 08:48
[2018-06-26] MEDS: Xarelto 15mg tab ORAL SCH (09:45)
[2018-06-26] MEDS: Montelukast 10mg tablet ORAL SCH (09:45)
[2018-06-26] MEDS: Metoprolol Tartrate 50mg tab ORAL SCH (09:45)
[2018-06-26] MEDS: Losartan 25mg tab ORAL SCH (09:46)
[2018-06-26 12:00] VITALS: BP 139/81
--- NOTE | 2018-06-26 13:39 | General Progress Note ---
Assessment/Plan Problem List: (1) Acute metabolic encephalopathy ICD Codes: G93.41 - Metabolic encephalopathy SNOMED: 93897011, 891080605 Status: stable Assessment/Plan Zyprexa 5 mg tid Ativan prn for break through agitation cont restraints. Subjective Neurologic/Psychiatric: Reports: anxiety, depressed, emotional problems Allergies: Coded Allergies: IBUPROFEN (Verified Allergy, Unknown, 06/17/18) Subjective the pt is still confused and agitated. Objective Last 24 Hour Vital Signs Date Time Temp Pulse Resp B/P (MAP) Pulse Ox O2 Delivery O2 Flow Rate FiO2 06/26/18 12:00 98.1 89 22 139/81 (100) 93 06/26/18 09:46 163/88 06/26/18 09:45 109 163/88 06/26/18 08:30 Room Air 06/26/18 08:04 100 06/26/18 08:00 97.3 109 20 163/88 (113) 96 06/26/18 07:58 85 18 99 Room Air 21 06/26/18 07:47 90 18 98 Room Air 21 06/26/18 04:00 98.2 77 20 158/71 (100) 96 06/26/18 03:36 107 06/26/18 00:00 98.0 90 20 146/85 (105) 96 06/25/18 23:28 92 06/25/18 21:00 Room Air 06/25/18 20:20 87 153/87 06/25/18 20:00 98.0 90 20 153/87 (109) 96 06/25/18 19:57 89 06/25/18 19:24 83 18 99 Room Air 21 06/25/18 19:14 88 18 98 Room Air 21 06/25/18 16:00 98.1 73 22 128/69 (88) 96 06/25/18 16:00 87 Intake and Output 06/25/18 06/26/18 19:00 07:00 # Voids 1 2 Height (Feet): 5 Height (Inches): 8.00 Weight (Pounds): 168 General Appearance: alert, confused, moderate distress, agitated Massiel Blanco MD Jun 26, 2018 13:39
== END 2018-06-26 13:50 | DRG 871 ==
LOC: EDBD 14:16 → EMR 14:55 → 2E 15:22 → EDBEDREQ 16:09 → 2E 06-18 08:13
PROC: 05HC33Z Insertion of Infusion Device into Left Basilic Vein, Percutaneous Approach (ICD-10-PCS; principal; 2018-06-17)
PROC: B54NZZA Ultrasonography of Left Upper Extremity Veins, Guidance (ICD-10-PCS; principal; 2018-06-17)
DX: A41.9 Sepsis, unspecified organism (principal); G93.41 Metabolic encephalopathy; I21.A1 Myocardial infarction type 2; J69.0 Pneumonitis due to inhalation of food and vomit; J44.1 Chronic obstructive pulmonary disease with (acute) exacerbation; N17.9 Acute kidney failure, unspecified; E44.0 Moderate protein-calorie malnutrition; I48.91 Unspecified atrial fibrillation; E87.5 Hyperkalemia; F03.90 Unspecified dementia, unspecified severity, without behavioral disturbance, psychotic disturbance, mood disturbance, and anxiety; Z68.25 Body mass index [BMI] 25.0-25.9, adult; R62.7 Adult failure to thrive
CPT/HCPCS: 36415; 36569; 36600; 70551; 71045; 74230; 76937; 80048; 80053; 80202; 81003; 82248; 82550; 82553; 82803; 83605; 83880; 84484; 85007; 85025; 85610; 85730; 86710; 87040; 87070; 87081; 87181; 87205; 93005; 93306; 93926; 94640; 94664; 94760; 96361; 96365; 96372; 96374; 96375; 99291; J7620